=== PATIENT | female | born 1955 | race Caucasian/White ===

== ENCOUNTER → 2016-08-30 | Outpatient (CLI) | payer BC ==
[~2016-08-30] MED LIST: ASPE10LO EX; ASPI1TAB24 PO; ASPI81TA83 PO; CORITAB5 PO; GABA300C3 PO; GABA600T PO; HYDR25TA6 PO; HYDR25TAB PO; LISI10TA4 PO; MELO15TA4 PO; MULT1TAB9 PO; NEUR300C PO; POLYPOW9 PO; PRAV10TA PO; PRAV10TA2 PO; TRAM50TA2 PO; VITA200016 PO; excedrin OR; tylenol arthritis PO
[2016-08-30 11:31] LABS: MEAN CORPUSCULAR HEMOGLOBIN 29.7 pg (27.0-33.0); MEAN CORPUSCULAR HGB CONC 33.1 g/dl (32.0-36.5); MEAN CORPUSCULAR VOLUME 89.9 fl (80.0-96.0); RED CELL DISTRIBUTION WIDTH 13.8 % (11.5-14.5); WHITE BLOOD COUNT 5.4 K/mm3 (4.0-10.0)
[2016-08-30 11:41] LABS: INR 1.02
[2016-08-30 12:02] LABS: ALBUMIN 3.9 GM/DL (3.2-5.2); ALBUMIN/GLOBULIN RATIO 1.11 (1.00-1.93); ALKALINE PHOSPHATASE 87 U/L (45-117); ALT/SGPT 19 U/L (12-78); ANION GAP 11 MEQ/L (8-16); AST/SGOT 17 U/L (15-37); BILIRUBIN,TOTAL 0.9 MG/DL (0.2-1.0); BLOOD UREA NITROGEN 21 MG/DL (7-18); CARBON DIOXIDE LEVEL 30 MEQ/L (21-32); CHLORIDE LEVEL 99 MEQ/L (98-107); CREATININE FOR GFR 0.65 MG/DL (0.55-1.02); GLOMERULAR FILTRATION RATE > 60.0 (>45); GLUCOSE, FASTING 89 MG/DL (80-110); POTASSIUM SERUM 3.7 MEQ/L (3.5-5.1); SODIUM LEVEL 140 MEQ/L (136-145); TOTAL PROTEIN 7.4 GM/DL (6.4-8.2)
--- NOTE | 2016-08-30 22:03 | REP ---
Clinical: Chest pain with history of diabetes . Comparison: 01/27/2011 . Technique: PA and lateral. Findings: The mediastinum and cardiac silhouette are normal. The lung sandra are clear and without acute consolidation, effusion, or pneumothorax. The skeletal structures are intact and normal. Impression: 1. No acute cardiopulmonary process. Signed by John Faulkner MD 08/30/2016 09:55 P
--- NOTE | 2016-08-31 17:17 | ECGEPIP ---
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
== END ==
LOC: M ADMPAT 09:18
PROVIDERS: ATTEND Orthopaedic Surgery
DX: Z01.818 Encounter for other preprocedural examination (principal); M16.12 Unilateral primary osteoarthritis, left hip; Z79.899 Other long term (current) drug therapy

== ENCOUNTER 2016-09-12 09:07 | Inpatient (IN) | payer BC ==
[2016-08-30 10:26] VITALS: BP 171/84
--- NOTE | 2016-09-06 13:59 | HPE ---
DATE OF ADMISSION: 09/12/2016 CHIEF COMPLAINT: Left hip pain. HISTORY OF PRESENT ILLNESS: This is a pleasant 60-year-old female with progressively worsening left hip pain and stiffness. She has failed to improve with conservative treatment. She has elected for surgery for her continued symptoms. She has pain with weight bearing activities and her activities of daily living. X-rays of her hip are notable for advanced osteoarthritis of the left hip joint. She has consented for a left total hip arthroplasty by Dr. Herman Lancaster. Medical optimization will be performed by Dr Tom tomorrow. ALLERGIES: No known drug allergies. CURRENT MEDICATIONS: - tramadol 50 mg one three times a day as needed - gabapentin 300 mg two capsules in the morning, one in the afternoon and two capsules in the evening - hydrochlorothiazide 25 mg once a day - lisinopril 10 mg once a day - pravastatin 10 mg once at bedtime - low dose aspirin once a day - PEG as needed - woman's one a day multivitamin - vitamin D3 2000 units - Aspercreme ointment as needed - Coricidin HPB as needed PAST MEDICAL HISTORY: High blood pressure. History of stroke. Sciatica. High cholesterol. PAST SURGICAL HISTORY: Appendectomy. Cholecystectomy. Excision of basal cell carcinoma of the skin. 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 She does not smoke or drink. FAMILY HISTORY: Noncontributory. REVIEW OF SYSTEMS: The patient denies chest pain, heart palpitations, cough, wheezing, difficulty breathing and shortness of breath. She denies abdominal pain, nausea, vomiting, diarrhea or constipation. She denies recent upper respiratory infection or urinary tract infection symptoms. She does complain of persistent pain in her left hip and pain with weight bearing activities in her left hip. PHYSICAL EXAMINATION: General: She is a well nourished, well developed, in no acute distress adult female. She ambulates with a moderate limp favoring her left lower extremity. She uses a single leg cane for ambulation. Vital signs: She is 5 feet 1 inch, weight 191 pounds, temperature 97.6, blood pressure 122/78, pulse 70, respirations 14. Her BMI 36.1. Neck: Supple without adenopathy or jugular venous distention. There were no carotid bruits appreciated upon auscultation. Lungs: Clear to auscultation without rales or wheeze throughout. Heart: Regular rate and rhythm. Abdomen: Bowel sounds present. Extremities: Examination of the hip revealed intact skin. She has decreased range of motion with internal and external rotation secondary to pain and stillness. The limb is neurovascularly intact. LABORATORY DATA: EKG showed sinus rhythm at 63 beats per minute. Chest x-ray showed no acute cardiopulmonary disease processes. UA showed 5 red blood cells, 1+ bacteria, otherwise within normal limits with specific gravity of 1.016. Prothrombin time 13.5, INR 1.02, CBC showed a red count of 3.97, hemoglobin 11.8, hematocrit 35.7. Otherwise within normal limits. Sed rate was 52, glucose 89, BUN 21, creatinine 0.65. Sodium 140, potassium 3.7. Urine culture showed no growth. Nasal and sinus cultures showed normal dayne. IMPRESSION: Symptomatic osteoarthritis of the left hip joint. PLAN: Consented for a left total hip arthroplasty by Dr. Herman Lancaster.
[~2016-09-12] VITALS: Ht 157.5 cm; Wt 87.0 kg
[2016-09-12] MEDS ORDERED: LR 1,000 ML IV SCH ×2 (09:30→14:30)
[2016-09-12] MEDS ORDERED: ceFAZolin 1GM INJ (J0690) As Ordered ONE (09:42)
[2016-09-12] MEDS ORDERED: BUPIVACAINE HCL 0.5% 10 ML VIAL As Ordered ONE ×2 (09:42→09:47)
[2016-09-12] MEDS ORDERED: BUPIVACAINE HCL 0.25% 30 ML VIAL As Ordered ONE (09:43)
[2016-09-12] MEDS ORDERED: EPINEPHrine INJ 1 MG/ML 1ML VIAL/AMP As Ordered ONE (09:44)
[2016-09-12] MEDS ORDERED: TRANEXAMIC ACID 100 MG/ML 10ML VIAL As Ordered ONE (09:44)
[2016-09-12] MEDS ORDERED: MIDAZOLAM INJ 2 MG/2 ML VIAL (J2250) As Ordered ONE (11:42)
[2016-09-12] MEDS ORDERED: fentaNYL 100 MCG/2 ML INJECTION (J3010) As Ordered ONE ×2 (11:42→11:59)
[2016-09-12] MEDS ORDERED: BUPIVACAINE HCL 0.25% 10 ML VIAL As Ordered ONE (12:02)
[2016-09-12] MEDS ORDERED: fentaNYL 100 MCG/2 ML INJECTION (J3010) XX ONE (12:34)
[2016-09-12] MEDS ORDERED: EPINEPHrine INJ 1 MG/ML 1ML VIAL/AMP XX ONE (12:34)
[2016-09-12] MEDS ORDERED: BUPIVACAINE HCL 0.25% 30 ML VIAL XX ONE (12:34)
[2016-09-12] MEDS ORDERED: TRANEXAMIC ACID 100 MG/ML 10ML VIAL XX ONE (12:34)
[2016-09-12] MEDS ORDERED: ceFAZolin 1GM INJ (J0690) IR ONE (12:34)
[2016-09-12] MEDS ORDERED: MORPHINE PCA 1MG/ML 100ML CADD As Ordered ONE (13:34)
--- NOTE | 2016-09-12 14:12 | RO ---
DATE OF PROCEDURE: 09/12/2016 PREPROCEDURE DIAGNOSIS: Left hip osteoarthritis. POSTPROCEDURE DIAGNOSIS: Left total hip osteoarthritis. OPERATION PERFORMED: Left total hip replacement. SURGEON: Herman Lancaster MD LAST MODEL MAKER: SHIRIN Power HISTORY: A 60-year-old female with severe erosive arthritis with arthrokatadysis. The patient presents for elective total hip. FINDINGS AT SURGERY: Severely deep acetabulum that had to be bone grafted in order to position the cup correctly. Huge osteophytes removed. Mr. Latham assisted by manipulating the leg and retracting vital structures in order to expedite the surgery. At surgery, we put in a 54 cup, 36 polyethylene liner and a #4 [place], a 36 x 1.5 head neck length. Blood loss was around 150 to 200 mL. No blood replaced intraoperatively. We had good range of motion. No impingement after we removed the large osteophytes from around the cup. DESCRIPTION OF PROCEDURE: After spinal anesthetic, a Zamora catheter placed, IV antibiotics were administered. She was rolled left side up in the Miguel and padded appropriately. Then prepped and draped. Lateral incision made. Bleeding points controlled with electrocautery. The IT band divided in line with the fibers. The abductors reflected anteriorly. Labrum was incised and the hip dislocated. The intermedullary canal reamed to a 4. The neck was cut, the head discarded and the acetabulum was exposed. Huge osteophytes needed to be trimmed just to get into the acetabulum. Then, sequentially reaming from 43 on up to 53, we are able to get a good bony rim. The acetabulum was probably another 8-10 mm deeper than what I thought the cup would go so that area was scuffed up with a tiny reamer, 40, and then bone graft was placed in the bottom and we used a reverse reamer to pack it in. The cup was then seated in appropriate anteversion. The apex hole eliminator was installed and the polyethylene was installed. We had good fit. The number 4 rest stem was utilized. The trial reduction showed some minor impingement superiorly so we went ahead and trimmed a little bit more of the osteophyte and that took care of that, it was stable in flexion and internal rotation and there was no shuck. Trial components were removed. The permanent components installed and the hip reduced. The area thoroughly irrigated with orthopedic solution. TXA was instilled into the wound for postoperative control of bleeding and the PainBuster was installed for postop analgesia. The capsule closed with heavy PDS suture. The abductors repaired back to the trochanter with several sutures going through bone. The IT band repaired with the same suture. The wound was then closed. Subcutaneous with several layers of #2-0 PDS due to the extreme depth of the fatty layer. [place] for skin. Dry dressing applied. The PainBuster was primed with 10 mL. The patient rolled flat and transported to the recovery room breathing spontaneously, having tolerated procedure well.
[2016-09-12] MEDS ORDERED: NALOXONE INJ 0.4 MG/1 ML VIAL (J2310) IV PRN (14:15)
[2016-09-12] MEDS ORDERED: MORPHINE PCA 1MG/ML 100ML CADD IV PRN (14:15)
[2016-09-12] MEDS ORDERED: diphenhydrAMINE INJ 50MG/ML VIAL (J1200) IV PRN (14:15)
[2016-09-12] MEDS ORDERED: ACETAMINOPHEN TAB 650MG DOSE (2X325MG) PO PRN (14:15)
[2016-09-12] MEDS: D5W/0.45% SODIUM CHLORIDE 1,000 ML IV SCH (14:15)
[2016-09-12] MEDS ORDERED: EPIDURAL/PCA KEYS XX PRN (14:15)
[2016-09-12] MEDS ORDERED: PATIENT IS CURRENTLY ON AN ON-Q PAIN BUSTER PAIN RELIEF SYSTEM XX SCH (14:15)
[2016-09-12] MEDS ORDERED: FLEET ENEMA PR PRN (14:15)
[2016-09-12] MEDS ORDERED: NALBUPHINE HCL 10 MG/ML AMP (J2300) IV PRN (14:15)
[2016-09-12] MEDS ORDERED: ONDANSETRON 4MG/2ML VIAL (J2405) IV PRN ×2 (14:15→14:30)
[2016-09-12] MEDS ORDERED: METOCLOPRAMIDE INJ 10MG/2ML VIAL (J2765) IV PRN (14:30)
[2016-09-12] MEDS ORDERED: PERCOCET 5MG/325MG TAB PO PRN (14:30)
[2016-09-12] MEDS ORDERED: fentaNYL 100 MCG/2 ML INJECTION (J3010) IV PRN (14:30)
[2016-09-12] MEDS ORDERED: MORPHINE 2 MG/ML 1ML SYRINGE IV PRN (14:30)
[2016-09-12 16:00] VITALS: BP 159/77
[2016-09-12 16:30] VITALS: BP 160/72
[2016-09-12] MEDS ORDERED: WARFARIN SOD 5 MG TAB PO SCH (17:00)
[2016-09-12] MEDS ORDERED: GABA-283 PO (17:22)
[2016-09-12 17:30] VITALS: BP 136/65
[2016-09-12 18:30] VITALS: BP 136/60
--- NOTE | 2016-09-12 18:30 | CR ---
DATE OF CONSULTATION: 09/12/2016 REASON FOR CONSULTATION: Medical management. CONSULTING PHYSICIAN: Dr. Herman Lancaster PRIMARY CARE PROVIDER: Latonya Euceda NP HISTORY OF PRESENT ILLNESS: The patient is a 60-year-old female with past medical history significant for hypertension, hyperlipidemia, sciatica, history of stroke, worsening hip pain, presented to the hospital for an elective left hip surgery. The patient had failed outpatient conservative treatment for her left hip pain and stiffness. Has gotten progressively worse. She has elected for surgery. She was cleared by primary care provider, Dr. Guadarrama. The patient tolerated the procedure well. We were called for medical management. REVIEW OF SYSTEMS: A 12-point review of systems was obtained, all which was negative, except patient was complaining of some postoperative left hip pain. PAST MEDICAL HISTORY: Significant for: 1. Hypertension. 2. Hyperlipidemia. 3. Sciatica. 4. History of stroke with no residual deficits. 5. Neuropathy. ALLERGIES: No known drug allergies. HOME MEDICATIONS: Include: - tramadol 50 mg three times a day - gabapentin 600 mg in the afternoon and at night - hydrochlorothiazide 25 mg by mouth daily - lisinopril 10 mg by mouth daily - pravastatin 10 mg at bedtime - low-dose aspirin daily - multivitamin one tablet daily - vitamin D 2000 units daily PAST SURGICAL HISTORY: 1. Appendectomy. 2. Cholecystectomy. 3. Basal cell carcinoma of the skin. SOCIAL HISTORY: Patient lives with her . No alcohol or tobacco use. FAMILY HISTORY: Noncontributory. PHYSICAL EXAMINATION: VITAL SIGNS: Temperature 97.1, pulse 67, respiratory rate 16, blood pressure 117/69, pulse oximetry 100% on 2 liters nasal cannula. LABORATORY DATA OUTPATIENT: WBC 5.6, hemoglobin 11.8, hematocrit 35.7, platelet count 310. Sodium 140, potassium 3.7, chloride 99, BUN 21, creatinine 0.65, magnesium 1.8. ASSESSMENT AND PLAN: 1. Left hip osteoarthritis, status post left total hip replacement. Postoperative day #0. Pain and anticoagulation management per surgery. The patient has Zamora catheter in the right now. 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 She received one dose of 5 mg Coumadin. 2. History of hypertension. We will hold the patient's hypertensive medications at this time. Blood pressure appears to be controlled with the last blood pressure of 117/69. We will recheck laboratory data in the morning and continue the patient's home medications if need be. 3. History of hyperlipidemia. We will resume the patient's statin. 4. History of cerebrovascular accident (CVA) with no residual deficits. 5. History of neuropathy. Will continue the patient's home medication in the morning. 6. Deep vein thrombosis (DVT) prophylaxis. The patient was started on Coumadin per surgery.
[2016-09-12] MEDS ORDERED: PRAVASTATIN 10 MG TAB PO SCH (21:00)
[2016-09-12 22:00] VITALS: BP 144/67
[2016-09-13] MEDS: D5W/0.45% SODIUM CHLORIDE 1,000 ML IV SCH (00:15)
[2016-09-13 02:00] VITALS: BP 140/60
[2016-09-13 06:00] VITALS: BP 138/70
[2016-09-13] MEDS ORDERED: ONDANSETRON 4 MG TAB (S0181) PO PRN (06:45)
[2016-09-13] MEDS ORDERED: PERCOCET 5MG/325MG TAB PO PRN (06:45)
[2016-09-13 06:50] LABS: MEAN CORPUSCULAR HEMOGLOBIN 29.7 pg (27.0-33.0); MEAN CORPUSCULAR HGB CONC 32.9 g/dl (32.0-36.5); MEAN CORPUSCULAR VOLUME 90.3 fl (80.0-96.0); RED CELL DISTRIBUTION WIDTH 13.8 % (11.5-14.5); WHITE BLOOD COUNT 5.3 K/mm3 (4.0-10.0)
[2016-09-13 06:57] LABS: INR 1.08
[2016-09-13 07:23] LABS: ALBUMIN 2.9 GM/DL (3.2-5.2); ALBUMIN/GLOBULIN RATIO 1.07 (1.00-1.93); ALKALINE PHOSPHATASE 96 U/L (45-117); ALT/SGPT 126 U/L (12-78); ANION GAP 9 MEQ/L (8-16); AST/SGOT 216 U/L (15-37); BILIRUBIN,TOTAL 1.6 MG/DL (0.2-1.0); BLOOD UREA NITROGEN 12 MG/DL (7-18); CALCIUM LEVEL 8.1 MG/DL (8.8-10.2); CARBON DIOXIDE LEVEL 28 MEQ/L (21-32); CHLORIDE LEVEL 101 MEQ/L (98-107); CREATININE FOR GFR 0.66 MG/DL (0.55-1.02); GLOMERULAR FILTRATION RATE > 60.0 (>45); GLUCOSE, FASTING 125 MG/DL (80-110); MAGNESIUM LEVEL 1.6 MG/DL (1.8-2.4); POTASSIUM SERUM 3.7 MEQ/L (3.5-5.1); SODIUM LEVEL 138 MEQ/L (136-145); TOTAL PROTEIN 5.6 GM/DL (6.4-8.2)
--- NOTE | 2016-09-13 08:05 | IPN ---
DATE: 09/13/2016 60-year-old female seen at bedside. No overnight issues. She feels her pain is adequately controlled. She denies chest pain, shortness breath, productive sputum, cough or hemoptysis. OBJECTIVE: Temperature is 97.1, pulse is 83, respiratory rate is 16 and nonlabored, blood pressure 138/70, SpO2 is 98% on 2 liters. GENERAL: The patient appears to be in no acute distress. She is alert and oriented, pleasant to talk to. HEENT: Unremarkable. LUNGS: Clear. HEART: Regular rate and rhythm. ABDOMEN: Slightly distended, but positive bowel sounds. No masses. No rebound. EXTREMITIES: No edema. No calf tenderness. LABORATORY DATA: White count is 5.3, hemoglobin 10.3, platelets 256,000, sodium 138, potassium 3.7, chloride 101, bicarb 28, anion gap 9, BUN 12, creatinine 0.66, glucose 125, magnesium 1.6, AST 216, ALT 126, alkaline phosphatase 96, albumin 2.9, INR is 1.08. ASSESSMENT/PLAN: 1. Left hip osteoarthritis status post left total hip arthroplasty, postop day 1. Pain and anticoagulation management per orthopedics. She does appear to be somewhat constipated. I did speak to orthopedics. They will be managing her bowel regimen as well. 2. Hypertension. Continue with blood pressure medications with hold parameters as outlined. 3. Elevated transaminitis with no definitive cause. Will continue to follow to see how she trends with this. She does not have any significant abdominal pain at this time and no pertinent history of alcohol or gallbladder disease. 4. History of cerebrovascular accident with no residual deficits. 5. History of neuropathy with left-sided sciatica. She is going to continue with her home medications. 6. Deep vein thrombosis (DVT) prophylaxis. Patient is on Coumadin and will begin passive range motion and hopefully physical therapy within the next 24-48 hours.
[2016-09-13] MEDS: MIRALAX *UNIT DOSE* 17GM PACKET PO SCH (08:26)
[2016-09-13] MEDS: MOM 30ML SUSPENSION UDC PO SCH (08:26)
[2016-09-13] MEDS: SENOKOT S TAB PO SCH ×2 (08:26→20:04)
[2016-09-13] MEDS: PERCOCET 5MG/325MG TAB PO PRN ×3 (08:26→21:16)
[2016-09-13] MEDS: MAGNESIUM OXIDE 400 MG TAB (MAG-OX) PO SCH (09:00)
[2016-09-13 10:00] VITALS: BP 120/76
--- NOTE | 2016-09-13 11:00 | REP ---
LEFT HIP SERIES: Three views. HISTORY: Postop position check. COMPARISON: Left hip radiographs are from July 13, 2015. FINDINGS: A left hip arthroplasty has been installed and is seen in good position. There is periarticular soft tissue swelling and soft tissue emphysema. Lateral skin rayna are seen. Signed by Jaison Reis MD 09/13/2016 08:10 P
[2016-09-13 14:00] VITALS: BP 116/66
[2016-09-13] MEDS ORDERED: WARFARIN SOD 5 MG TAB PO ONE (17:00)
[2016-09-14] MEDS: PERCOCET 5MG/325MG TAB PO PRN ×4 (01:27→22:35)
[2016-09-14 06:00] VITALS: BP 116/64
[2016-09-14 06:50] LABS: INR 1.28
[2016-09-14 07:16] LABS: ALBUMIN 2.8 GM/DL (3.2-5.2); ALBUMIN/GLOBULIN RATIO 0.82 (1.00-1.93); ALKALINE PHOSPHATASE 82 U/L (45-117); ALT/SGPT 72 U/L (12-78); ANION GAP 8 MEQ/L (8-16); AST/SGOT 54 U/L (15-37); BILIRUBIN,TOTAL 1.9 MG/DL (0.2-1.0); BLOOD UREA NITROGEN 12 MG/DL (7-18); CALCIUM LEVEL 8.4 MG/DL (8.8-10.2); CARBON DIOXIDE LEVEL 31 MEQ/L (21-32); CHLORIDE LEVEL 100 MEQ/L (98-107); CREATININE FOR GFR 0.59 MG/DL (0.55-1.02); GLOMERULAR FILTRATION RATE > 60.0 (>45); GLUCOSE, FASTING 107 MG/DL (80-110); MAGNESIUM LEVEL 2.1 MG/DL (1.8-2.4); POTASSIUM SERUM 3.9 MEQ/L (3.5-5.1); SODIUM LEVEL 139 MEQ/L (136-145); TOTAL PROTEIN 6.2 GM/DL (6.4-8.2)
[2016-09-14] MEDS ORDERED: MAGNESIUM CITRATE 300 ML BTL PO ONE (07:45)
[2016-09-14] MEDS: PANTOPRAZOLE 40MG TAB (PROTONIX) PO SCH (09:10)
[2016-09-14] MEDS: MOM 30ML SUSPENSION UDC PO SCH (09:11)
[2016-09-14] MEDS: MAGNESIUM OXIDE 400 MG TAB (MAG-OX) PO SCH (09:11)
[2016-09-14] MEDS: MIRALAX *UNIT DOSE* 17GM PACKET PO SCH (09:11)
[2016-09-14] MEDS: SENOKOT S TAB PO SCH ×2 (09:12→20:01)
--- NOTE | 2016-09-14 11:59 | IPN ---
DATE: 09/14/2016 60-year-old female seen at bedside. No overnight issues. No chest pain, nausea or vomiting. She is tolerating breakfast this morning. OBJECTIVE: Temperature is 97.7, pulse 74, respiratory rate 18, blood pressure (BP) 116/64, SpO2 is 97% on room air. General: The patient appears to be in no acute distress, is alert, oriented. HEENT: Head is atraumatic, normocephalic. Eyes: Pupils equal, reactive to light and accommodation (ABDI). Throat clear. Lungs: Clear. Heart: Regular rate and rhythm. Abdomen: Soft. Extremities. No edema. Repeat chemistries: Sodium is 139, potassium 3.9, chloride 100, bicarbonate 31, anion gap 8, BUN 12, creatinine 0.59, glucose 107, magnesium 2.1, total bilirubin 1.9, AST is 54, ALT 72, alkaline phosphatase 82, albumin is 2.8. INR is 1.28. ASSESSMENT AND PLAN: 1. Left hip osteoarthritis status post left total hip arthroplasty day #2. Orthopedics is following along with this patient's pain management, anticoagulation. Physical therapy is managed by orthopedics as well as bowel regimen. 2. Hypertension, stable. Continue current medications with hold parameters. 3. Elevated transaminitis. No definitive cause. However, I did hold her statin yesterday and she does appear to be trending downward. Will hold the statin and she can followup outpatient with her primary care provider to determine when to resume. 4. History of cerebrovascular accident with no residual deficits. 5. History of neuropathy with left-sided sciatica. Doing well on her current medications and participating with physical therapy. 6. Deep venous thrombosis (DVT) prophylaxis. Currently on Coumadin. Managed by physical therapy. DISPOSITION: Anticipate discharge in the next few days, when is felt to be appropriate by orthopedics. [facility]
[2016-09-14] MEDS ORDERED: MAGNESIUM CITRATE 300 ML BTL PO PRN (12:00)
[2016-09-14 14:00] VITALS: BP 140/72
[2016-09-14] MEDS ORDERED: WARFARIN SOD 7.5 MG TAB PO ONE (17:00)
[2016-09-14] MEDS ORDERED: WARFARIN SOD 3 MG TAB PO ONE (17:00)
[2016-09-14 22:00] VITALS: BP 133/69
[2016-09-15 06:00] VITALS: BP 125/58
[2016-09-15 07:04] LABS: INR 1.28
[2016-09-15 07:11] LABS: ALBUMIN 2.9 GM/DL (3.2-5.2); ALBUMIN/GLOBULIN RATIO 0.73 (1.00-1.93); ALKALINE PHOSPHATASE 96 U/L (45-117); ALT/SGPT 50 U/L (12-78); ANION GAP 7 MEQ/L (8-16); AST/SGOT 24 U/L (15-37); BILIRUBIN,TOTAL 1.1 MG/DL (0.2-1.0); BLOOD UREA NITROGEN 15 MG/DL (7-18); CALCIUM LEVEL 8.6 MG/DL (8.8-10.2); CARBON DIOXIDE LEVEL 31 MEQ/L (21-32); CHLORIDE LEVEL 102 MEQ/L (98-107); CREATININE FOR GFR 0.64 MG/DL (0.55-1.02); GLOMERULAR FILTRATION RATE > 60.0 (>45); GLUCOSE, FASTING 133 MG/DL (80-110); MAGNESIUM LEVEL 2.3 MG/DL (1.8-2.4); POTASSIUM SERUM 3.3 MEQ/L (3.5-5.1); SODIUM LEVEL 140 MEQ/L (136-145); TOTAL PROTEIN 6.9 GM/DL (6.4-8.2)
[2016-09-15] MEDS ORDERED: PERC5TAB6 PO (07:43)
[2016-09-15] MEDS ORDERED: COUM2.5T11 PO (07:43)
[2016-09-15] MEDS: MOM 30ML SUSPENSION UDC PO SCH (08:13)
[2016-09-15] MEDS: MIRALAX *UNIT DOSE* 17GM PACKET PO SCH (08:13)
[2016-09-15] MEDS: SENOKOT S TAB PO SCH (08:13)
[2016-09-15] MEDS: PANTOPRAZOLE 40MG TAB (PROTONIX) PO SCH (08:13)
[2016-09-15] MEDS: MAGNESIUM OXIDE 400 MG TAB (MAG-OX) PO SCH (08:13)
[2016-09-15] MEDS: PERCOCET 5MG/325MG TAB PO PRN (08:20)
--- NOTE | 2016-09-18 17:23 | DSES ---
DATE OF ADMISSION: 09/12/2016 DATE OF DISCHARGE: 09/15/2016 ADMITTING DIAGNOSIS: Severe erosive osteoarthritis of the left hip. OTHER DIAGNOSES: 1. Hyperlipidemia. 2. Hypertension. 3. History of stroke. 4. Sciatica. DISCHARGE DIAGNOSIS: Status post left total hip arthroplasty. HISTORY OF PRESENT ILLNESS: Patient is a pleasant female with continued symptomatic left hip pain and stiffness. She has consented for a left total hip arthroplasty with Dr. Lancaster. She was admitted on the day of surgery for this elective procedure. OPERATION PERFORMED: Left total hip arthroplasty. HOSPITAL COURSE: The patient underwent a left total hip arthroplasty under spinal anesthesia. Surgery was uneventful. Patient's hospital course was without complication. She was up with physical therapy per their protocol. She was weightbearing as tolerated with the left lower extremity. Oral pain medication as needed for pain control. Patient may resume preoperative medications and diet. Patient will use Coumadin and thromboembolic deterrent stockings for 30 days post surgery for deep venous thrombosis prophylaxis. She will followup in our office in approximately 12-14 days for a wound check, staple removal. The patient is encouraged to contact our office sooner with any increased pain, drainage, bleeding, redness, numbness and tingling in her left lower extremity, or fever greater than 101 degrees. Please see medical record for additional details. Edited: leanne 09/18/2016 1601
== END 2016-09-15 12:50 | disposition home or self-care (01) | DRG 301 ==
LOC: M OR 09:07 → M MS5PR 15:45
PROVIDERS: ADMIT Orthopaedic Surgery; ATTEND Orthopaedic Surgery
PROC: 0SRB0JA Replacement of Left Hip Joint with Synthetic Substitute, Uncemented, Open Approach (ICD-10-PCS; principal; 2016-09-12 10:50)
DX: M16.12 Unilateral primary osteoarthritis, left hip (principal); I10 Essential (primary) hypertension; Z79.899 Other long term (current) drug therapy; E78.5 Hyperlipidemia, unspecified; Z86.73 Personal history of transient ischemic attack (TIA), and cerebral infarction without residual deficits; Z79.82 Long term (current) use of aspirin; G60.9 Hereditary and idiopathic neuropathy, unspecified

== ENCOUNTER → 2016-09-21 | Outpatient (REF) | payer BC ==
[~2016-09-21] MED LIST changes: +COUM2.5T11 PO; +GABA-283 PO; +PERC5TAB6 PO
[2016-09-21 11:30] LABS: INR 1.53
== END ==
LOC: M LAB REF 11:07
PROVIDERS: ATTEND Nurse Practitioner Family
DX: Z79.01 Long term (current) use of anticoagulants (principal)

== ENCOUNTER → 2016-09-25 | Outpatient (REF) | payer BC ==
[2016-09-25 12:43] LABS: INR 1.46
== END ==
LOC: M LAB REF 12:00
PROVIDERS: ATTEND Nurse Practitioner Family
DX: Z79.01 Long term (current) use of anticoagulants (principal)

== ENCOUNTER → 2016-09-28 | Outpatient (REF) | payer BC ==
[2016-09-28 12:45] LABS: INR 1.56
== END ==
LOC: M LAB REF 12:12
PROVIDERS: ATTEND Nurse Practitioner Family
DX: Z79.01 Long term (current) use of anticoagulants (principal)

== ENCOUNTER → 2016-10-02 | Outpatient (REF) | payer BC ==
[2016-10-02 13:12] LABS: INR 2.25
== END ==
LOC: M LAB REF 12:13
PROVIDERS: ATTEND Nurse Practitioner Family
DX: Z79.01 Long term (current) use of anticoagulants (principal)

== ENCOUNTER → 2016-10-05 | Outpatient (REF) | payer BC ==
[2016-10-05 12:28] LABS: INR 1.61
== END ==
LOC: M LAB REF 11:45
PROVIDERS: ATTEND Nurse Practitioner Family
DX: Z79.01 Long term (current) use of anticoagulants (principal)

== ENCOUNTER → 2016-10-06 | Outpatient (REF) | payer BC ==
[2016-10-06 17:46] LABS: BASO % 0.5 % (0.0-1.0); EOS # 0.1 K/mm3 (0.0-0.50); EOS % 2.4 % (0.0-3.0); LARGE UNSTAINED CELL # 0.1 K/mm3 (0.0-0.4); LYMPH # 1.3 K/mm3 (1.5-4.5); LYMPH % 24.8 % (24.0-44.0); MEAN CORPUSCULAR HEMOGLOBIN 28.8 pg (27.0-33.0); MEAN CORPUSCULAR HGB CONC 31.4 g/dl (32.0-36.5); MEAN CORPUSCULAR VOLUME 91.9 fl (80.0-96.0); MONO # 0.3 K/mm3 (0.0-0.8); NEUTROPHILS # 3.3 K/mm3 (1.8-7.7); NEUTROPHILS % 64.3 % (36.0-66.0); PLATELET COUNT, AUTOMATED 386 k/mm3 (150-450); RED CELL DISTRIBUTION WIDTH 13.3 % (11.5-14.5); WHITE BLOOD COUNT 5.2 K/mm3 (4.0-10.0)
[2016-10-06 19:48] LABS: ERYTHROCYTE SEDIMENTATION RATE 70 mm/hr (0-30)
== END ==
LOC: M LABDRAW1 17:01
PROVIDERS: ATTEND Physician Assistant Surgical
DX: Z47.1 Aftercare following joint replacement surgery (principal)

== ENCOUNTER → 2016-10-24 | Outpatient (REF) | payer BC ==
[2016-10-24 12:23] LABS: ALBUMIN 3.5 GM/DL (3.2-5.2); ALBUMIN/GLOBULIN RATIO 1.06 (1.00-1.93); ALKALINE PHOSPHATASE 86 U/L (45-117); ALT/SGPT 17 U/L (12-78); ANION GAP 10 MEQ/L (8-16); AST/SGOT 9 U/L (15-37); BILIRUBIN,TOTAL 0.8 MG/DL (0.2-1.0); BLOOD UREA NITROGEN 18 MG/DL (7-18); CALCIUM LEVEL 8.9 MG/DL (8.8-10.2); CARBON DIOXIDE LEVEL 29 MEQ/L (21-32); CHLORIDE LEVEL 105 MEQ/L (98-107); CHOLESTEROL LEVEL 204 MG/DL (<200); CREATININE FOR GFR 0.65 MG/DL (0.55-1.02); GLOMERULAR FILTRATION RATE > 60.0 (>45); GLUCOSE, FASTING 95 MG/DL (80-110); POTASSIUM SERUM 4.1 MEQ/L (3.5-5.1); SODIUM LEVEL 144 MEQ/L (136-145); TOTAL PROTEIN 6.8 GM/DL (6.4-8.2); TRIGLYCERIDES LEVEL 136 MG/DL (<150)
== END ==
LOC: M SFHCLERA 08:42
PROVIDERS: ATTEND Physician Assistant
DX: I10 Essential (primary) hypertension (principal); R73.01 Impaired fasting glucose; E78.2 Mixed hyperlipidemia

== ENCOUNTER → 2017-02-12 | Outpatient (REF) | payer BC ==
[~2017-02-12] MED LIST changes: +GABA-282 PO; -GABA300C3 PO
[2017-02-12 12:25] LABS: ALBUMIN 4.1 GM/DL (3.2-5.2); ALBUMIN/GLOBULIN RATIO 1.32 (1.00-1.93); ALKALINE PHOSPHATASE 93 U/L (45-117); ALT/SGPT 20 U/L (12-78); ANION GAP 9 MEQ/L (8-16); AST/SGOT 17 U/L (15-37); BILIRUBIN,TOTAL 1.7 MG/DL (0.2-1.0); BLOOD UREA NITROGEN 20 MG/DL (7-18); CALCIUM LEVEL 9.3 MG/DL (8.8-10.2); CARBON DIOXIDE LEVEL 29 MEQ/L (21-32); CHLORIDE LEVEL 101 MEQ/L (98-107); CHOLESTEROL LEVEL 121 MG/DL (<200); CREATININE FOR GFR 0.75 MG/DL (0.55-1.02); GLOMERULAR FILTRATION RATE > 60.0 (>45); GLUCOSE, FASTING 98 MG/DL (80-110); POTASSIUM SERUM 3.4 MEQ/L (3.5-5.1); SODIUM LEVEL 139 MEQ/L (136-145); TOTAL PROTEIN 7.2 GM/DL (6.4-8.2); TRIGLYCERIDES LEVEL 113 MG/DL (<150)
== END ==
LOC: M SFHCLERA 09:18
PROVIDERS: ATTEND Physician Assistant
DX: E78.2 Mixed hyperlipidemia (principal)

== ENCOUNTER → 2017-02-23 | Outpatient (CLI) | payer BC ==
[~2017-02-23] MED LIST changes: +ASPI-161 PO; -ASPI1TAB24 PO; +ATOR40TA75 PO; +BIOF4GEL2 EXT; -COUM2.5T11 PO; +COUM2.5T17 PO; +PERC5TAB12 PO; -PERC5TAB6 PO; +POLYPOW9 XX; -PRAV10TA PO; +PRAV10TA4 PO; +TYLE650T35 PO
--- NOTE | 2017-02-23 16:11 | REPMRS ---
Patient History The patient states she has not had a clinical breast exam in over a year. Patient is postmenopausal. No known family history of cancer. Digital Woman Screen Mammo: February 23, 2017 - Exam #: [id number] Bilateral CC and MLO view(s) were taken. Technologist: Stormy Piña, Technologist Prior study comparison: March 02, 2003, bilateral screening mammogram performed at [facility]. FINDINGS: There are scattered fibroglandular densities. There has been no change in the appearance of the mammogram from the prior studies. There is a mild amount of scattered fibroglandular density which is fairly symmetric. There is no interval development of dominant mass, architectural distortion, or clustered microcalcification suggestive of malignancy. ASSESSMENT: BI-RADS/ACR category 1 mammogram. Negative. Recommendation Routine screening mammogram in 1 year (for women over age 40). This mammogram was interpreted with the aid of an FDA-approved computer-aided dectection system. Electronically Signed By: Josh Reis MD 02/23/17 [id number]
== END ==
LOC: M WHC 12:41
PROVIDERS: ATTEND Physician Assistant
DX: Z12.31 Encounter for screening mammogram for malignant neoplasm of breast (principal); Z78.0 Asymptomatic menopausal state

== ENCOUNTER 2017-04-06 09:25 | Outpatient (CLI) | payer BC ==
[~2017-04-06] VITALS: Ht 157.5 cm; Wt 94.3 kg
[2017-04-06] MEDS ORDERED: NS 1,000 ML IV ONE (09:45)
[2017-04-06] MEDS ORDERED: PROPOFOL 200 MG/20 ML VIAL As Ordered ONE (11:02)
[2017-04-06] MEDS ORDERED: LIDOCAINE 2% INJ 100 MG/5 ML SDV (FOR ANES.) As Ordered ONE (11:02)
--- NOTE | 2017-04-06 11:21 | ROOR ---
Patient Name: Aracely Eagle Procedure Date: 04/06/2017 10:58 AM Date of : 1955 Age: 61 Room: [facility] Gender: Female Note Status: Finalized Procedure: Colonoscopy Indications: Screening for colorectal malignant neoplasm Providers: Miguel JOHNSON MD Referring MD: SHIRIN Gunter Requesting Provider: Medicines: Monitored Anesthesia Care Complications: No immediate complications. Procedure: Pre-Anesthesia Assessment: - The heart rate, respiratory rate, oxygen saturations, blood pressure, adequacy of pulmonary ventilation, and response to care were monitored throughout the procedure. The Colonoscope was introduced through the anus and advanced to the cecum, identified by appendiceal orifice and ileocecal valve. The colonoscopy was performed without difficulty. The patient tolerated the procedure well. The quality of the bowel preparation was good. Findings: The perianal and digital rectal examinations were normal. Mild diverticulosis and small internal hemorrhoids. The colon appeared normal on direct and retroflexion views. Impression: - Mild diverticulosis and small internal hemorrhoids. - The colon is otherwise normal on direct and retroflexion views. - No specimens collected. Recommendation: - Repeat colonoscopy in 10 years for screening purposes. Miguel Johnson MD Miguel JOHNSON MD 04/06/2017 11:21:06 AM This report has been signed electronically. Number of Addenda: 0 Note Initiated On: 04/06/2017 10:58 AM Estimated Blood Loss: Estimated blood loss: none.
[2017-04-06 11:45] VITALS: BP 161/76
== END 2017-04-06 11:58 | disposition home or self-care (01) ==
LOC: M OPP 09:25
PROVIDERS: ATTEND Internal Medicine Gastroenterology
DX: Z12.11 Encounter for screening for malignant neoplasm of colon (principal); K57.30 Diverticulosis of large intestine without perforation or abscess without bleeding; K64.8 Other hemorrhoids; I10 Essential (primary) hypertension; E78.5 Hyperlipidemia, unspecified; R12 Heartburn; M19.90 Unspecified osteoarthritis, unspecified site; M25.60 Stiffness of unspecified joint, not elsewhere classified; I69.354 Hemiplegia and hemiparesis following cerebral infarction affecting left non-dominant side; Z78.0 Asymptomatic menopausal state; Z79.82 Long term (current) use of aspirin; Z79.899 Other long term (current) drug therapy

== ENCOUNTER → 2017-05-14 | Outpatient (CLI) | payer BC ==
--- NOTE | 2017-05-14 12:33 | REP ---
RIGHT FOOT SERIES: Four views. HISTORY: Metatarsalgia. FINDINGS: Four views of the left foot demonstrate plantar calcaneal spurring. Vascular calcification is noted. There is a mild to moderate hallux valgus. There is diffuse osteopenia. No fracture, periosteal reaction or erosive change is seen. IMPRESSION: Vascular calcification and diffuse osteopenia. Heel spurring. No acute bony abnormality. Signed by Jaison Reis MD 05/14/2017 04:29 P
== END ==
LOC: M LRY 10:56
PROVIDERS: ATTEND Family Medicine
DX: M77.42 Metatarsalgia, left foot (principal)

== ENCOUNTER → 2017-08-10 | Outpatient (REF) | payer BC ==
[2017-08-10 11:42] LABS: MEAN CORPUSCULAR HEMOGLOBIN 29.8 pg (27.0-33.0); MEAN CORPUSCULAR HGB CONC 31.8 g/dl (32.0-36.5); MEAN CORPUSCULAR VOLUME 93.6 fl (80.0-96.0); PLATELET COUNT, AUTOMATED 334 10^3/uL (150-450); RED CELL DISTRIBUTION WIDTH 14.3 % (11.5-14.5); WHITE BLOOD COUNT 4.7 10^3/uL (4.0-10.0)
[2017-08-10 12:15] LABS: ALBUMIN/GLOBULIN RATIO 1.25 (1.00-1.93); ALKALINE PHOSPHATASE 84 U/L (45-117); ALT/SGPT 26 U/L (12-78); ANION GAP 9 MEQ/L (8-16); AST/SGOT 20 U/L (7-37); BILIRUBIN,TOTAL 1.4 MG/DL (0.2-1.0); BLOOD UREA NITROGEN 20 MG/DL (7-18); CARBON DIOXIDE LEVEL 27 MEQ/L (21-32); CHLORIDE LEVEL 106 MEQ/L (98-107); CHOLESTEROL LEVEL 115 MG/DL (<200); CREATININE FOR GFR 0.63 MG/DL (0.55-1.02); GLOMERULAR FILTRATION RATE > 60.0 (>45); GLUCOSE, FASTING 84 MG/DL (80-110); POTASSIUM SERUM 3.6 MEQ/L (3.5-5.1); SODIUM LEVEL 142 MEQ/L (136-145); TOTAL PROTEIN 7.2 GM/DL (6.4-8.2); TRIGLYCERIDES LEVEL 79 MG/DL (<150)
== END ==
LOC: M SFHCLERA 08:13
PROVIDERS: ATTEND Physician Assistant
DX: M77.42 Metatarsalgia, left foot (principal); E78.2 Mixed hyperlipidemia

== ENCOUNTER → 2018-04-22 | Outpatient (REF) | payer BC ==
[2018-04-22 12:13] LABS: ALBUMIN 3.9 GM/DL (3.2-5.2); ALBUMIN/GLOBULIN RATIO 1.22 (1.00-1.93); ALKALINE PHOSPHATASE 90 U/L (45-117); ALT/SGPT 29 U/L (12-78); ANION GAP 8 MEQ/L (8-16); AST/SGOT 20 U/L (7-37); BILIRUBIN,TOTAL 1.2 MG/DL (0.2-1.0); BLOOD UREA NITROGEN 30 MG/DL (7-18); CARBON DIOXIDE LEVEL 27 MEQ/L (21-32); CHLORIDE LEVEL 110 MEQ/L (98-107); CHOLESTEROL LEVEL 115 MG/DL (<200); CHOLESTEROL RISK RATIO 2.254 (<5); CREATININE FOR GFR 0.72 MG/DL (0.55-1.30); GLOMERULAR FILTRATION RATE > 60.0 (>45); GLUCOSE, FASTING 102 MG/DL (70-100); HDL CHOLESTEROL 51 MG/DL (>40); LDL CHOLESTEROL 46.2 MG/DL (<100); NON-HDL-C 64 MG/DL; POTASSIUM SERUM 4.4 MEQ/L (3.5-5.1); SODIUM LEVEL 145 MEQ/L (136-145); TOTAL PROTEIN 7.1 GM/DL (6.4-8.2); TRIGLYCERIDES LEVEL 89 MG/DL (<150)
[2018-04-22 14:38] LABS: ESTIMATED AVERAGE GLUCOSE 131 MG/DL (60-110); HEMOGLOBIN A1c 6.2 %
== END ==
LOC: M SFHCPLAZ 09:57
DX: E78.2 Mixed hyperlipidemia (principal); E66.09 Other obesity due to excess calories
CPT/HCPCS: 84443

== ENCOUNTER 2018-07-09 09:02 | Day surgery (SDC) | payer BC ==
[~2018-07-09 09:02] MED LIST changes: -ASPE10LO EX; -ASPI-161 PO; -ASPI81TA83 PO; -ATOR40TA75 PO; -BIOF4GEL2 EXT; -CORITAB5 PO; -COUM2.5T17 PO; -GABA-282 PO; -GABA-283 PO; -GABA600T PO; -HYDR25TA6 PO; -HYDR25TAB PO; +LIDOCAINE 1% MDV 20ML VIAL SQ; +LIDOCAINE 2% INJ 100 MG/5 ML SDV (FOR ANES.) As Ordered; -LISI10TA4 PO; -MELO15TA4 PO; +MIDAZOLAM INJ 2 MG/2 ML VIAL (J2250) As Ordered; -MULT1TAB9 PO; -NEUR300C PO; +ONDANSETRON 4MG/2ML VIAL (J2405) As Ordered; -PERC5TAB12 PO; -POLYPOW9 PO; -POLYPOW9 XX; -PRAV10TA2 PO; -PRAV10TA4 PO; +PROPOFOL 200 MG/20 ML VIAL As Ordered; +ROCURONIUM BROMIDE 50 MG/5 ML VIAL As Ordered; -TRAM50TA2 PO; -TYLE650T35 PO; -VITA200016 PO; +dexameTHASONE 4 MG/ML 1ML VIAL (J1100) As Ordered; -excedrin OR; +fentaNYL 250 MCG/5 ML INJECTION (J3010) As Ordered; -tylenol arthritis PO
[2018-07-09] MEDS: LR 1,000 ML IV (09:26)
[2018-07-09] MEDS: BUPIVACAINE HCL 0.25% 30 ML VIAL As Ordered ×2 (11:23→13:44)
[2018-07-09] MEDS ORDERED: ONDANSETRON 4MG/2ML VIAL (J2405) As Ordered (12:08)
[2018-07-09] MEDS ORDERED: SUGAMMADEX SODIUM 500 MG/5 ML VIAL (BRIDION) As Ordered (12:08)
[2018-07-09] MEDS ORDERED: PROPOFOL 200 MG/20 ML VIAL As Ordered (12:28)
[2018-07-09] MEDS ORDERED: LABETALOL HCL 100 MG/20 ML VIAL As Ordered (12:36)
[2018-07-09] MEDS ORDERED: KETOROLAC 60 MG/2 ML VIAL (J1885) As Ordered (12:51)
[2018-07-09] MEDS: BUPIVACAINE LIPOSOME/PF 1.3% 20ML VIAL (13.3MG/ML)(EXPAREL)(C9290 PER1MG) As Ordered (13:42)
[2018-07-09] MEDS ORDERED: ACETAMINOPHEN TAB 650MG DOSE (2X325MG) PO (14:30)
[2018-07-09] MEDS ORDERED: fentaNYL 100 MCG/2 ML INJECTION (J3010) IV (14:30)
[2018-07-09] MEDS: PERCOCET 5MG/325MG TAB PO ×2 (14:30→15:00)
[2018-07-09] MEDS ORDERED: METOCLOPRAMIDE INJ 10MG/2ML VIAL (J2765) IV (14:30)
[2018-07-09] MEDS ORDERED: ONDANSETRON 4MG/2ML VIAL (J2405) IV (14:30)
[2018-07-09] MEDS ORDERED: LR 1,000 ML IV (14:30)
[2018-07-09] MEDS ORDERED: NORCO, ANEXSIA 5/325MG TABLET (HYDROcodone/ACETAMINOPHEN) PO (14:30)
[2018-07-09] MEDS ORDERED: IBUPROFEN 600 MG TAB PO (14:30)
[2018-07-09] MEDS ORDERED: MEPERIDINE INJ 25 MG/ML VIAL (J2175) IV (14:30)
== END 2018-07-09 16:08 | disposition home or self-care (01) ==
LOC: M SDC 09:02
DX: K43.2 Incisional hernia without obstruction or gangrene (principal); K42.9 Umbilical hernia without obstruction or gangrene; I10 Essential (primary) hypertension; E78.5 Hyperlipidemia, unspecified; M12.9 Arthropathy, unspecified; D50.9 Iron deficiency anemia, unspecified; G62.9 Polyneuropathy, unspecified; R56.9 Unspecified convulsions; I69.998 Other sequelae following unspecified cerebrovascular disease; E66.9 Obesity, unspecified; Z68.39 Body mass index [BMI] 39.0-39.9, adult; Z79.899 Other long term (current) drug therapy; Z79.82 Long term (current) use of aspirin; Z87.81 Personal history of (healed) traumatic fracture; Z78.0 Asymptomatic menopausal state; Z96.642 Presence of left artificial hip joint
CPT/HCPCS: 49652

== ENCOUNTER → 2019-04-22 | Outpatient (CLI) | payer BC ==
[~2019-04-22] MED LIST changes: +ALEV220T26 PO; +ASPE10LO EX; +ASPI-161 PO; +ASPI81TA83 PO; +ATOR40TA75 PO; +BIOF4GEL2 EXT; +CORITAB5 PO; +COUM2.5T17 PO; +GABA-843 PO; +GABA-845 PO; +GABA600T4 PO; +HYDR25TA6 PO; +HYDR25TAB PO; -LIDOCAINE 1% MDV 20ML VIAL SQ; -LIDOCAINE 2% INJ 100 MG/5 ML SDV (FOR ANES.) As Ordered; +LISI10TA4 PO; +MELO15TA28 PO; -MIDAZOLAM INJ 2 MG/2 ML VIAL (J2250) As Ordered; +MULT1TAB9 PO; +NEUR300C PO; -ONDANSETRON 4MG/2ML VIAL (J2405) As Ordered; +PERC5TAB12 PO; +POLYPOW9 PO; +POLYPOW9 XX; +PRAV10TA2 PO; +PRAV10TA4 PO; -PROPOFOL 200 MG/20 ML VIAL As Ordered; -ROCURONIUM BROMIDE 50 MG/5 ML VIAL As Ordered; +TRAM50TA2 PO; +TYLE650T35 PO; +VITA200016 PO; -dexameTHASONE 4 MG/ML 1ML VIAL (J1100) As Ordered; +excedrin OR; -fentaNYL 250 MCG/5 ML INJECTION (J3010) As Ordered; +tylenol arthritis PO
--- NOTE | 2019-04-23 11:57 | REP ---
Clinical: Cervical neck pain. Technique: AP, lateral, flexion/extension, bilateral oblique, and open-mouth views of the cervical spine. Findings: Generalized age-related osteopenia and moderate multilevel degenerative changes include endplate sclerosis with disc space narrowing and marginal spurring. There appears to be grade 1 anterolisthesis at the C3-4 and C4-5 levels. Oblique views demonstrate relatively patent neural foramen. Open mouth view demonstrates normal C1-C2 articulation and odontoid process. No acute fracture / compression injury or subluxation. Impression: Generalized age-related degenerative changes and osteopenia. Grade 1 anterolisthesis at C3-4 and C4-5 suggested. Electronically Signed by John Faulkner MD 04/23/2019 02:23 A
--- NOTE | 2019-04-23 11:57 | REP ---
Clinical: Right knee pain Technique: AP, lateral, bilateral oblique and sunrise views right knee . Findings: Relatively mild osteoarthritic degenerative changes are appreciated. Findings include mild subchondral sclerosis with very minimal lateral and patellofemoral joint space narrowing as well as cortical irregularity to the lateral femoral condyle with early spurring and fraying along the anterior patellar margin. No osteophytosis. No effusion. No obvious chondrocalcinosis. No fracture or dislocation. Impression: Mild osteoarthritic age-related degenerative changes. Electronically Signed by John Faulkner MD 04/23/2019 02:36 A
--- NOTE | 2019-04-23 11:57 | REP ---
Clinical: Left knee pain Technique: AP, lateral, bilateral oblique and sunrise views left knee . Findings: Essentially generalized age-related degenerative changes are appreciated. Findings include mild subchondral sclerosis with very minimal medial and patellofemoral joint space narrowing. No osteophytosis. No effusion. No obvious chondrocalcinosis. No fracture or dislocation. Impression: Essentially generalized age-related degenerative changes. Electronically Signed by John Faulkner MD 04/23/2019 02:33 A
--- NOTE | 2019-04-23 11:58 | REP ---
Clinical: Right shoulder pain. Technique: Internal rotation, external rotation, and Y view of the right shoulder. Findings: Age-related arthritic changes include subtle cortical irregularity and early spurring at the acromioclavicular joint as well as subtle irregular sclerosis involving the calcified glenoid rim. No acute fracture dislocation. Subacromial space is normal. No periarticular calcified loose bodies noted. Impression: Mild age-related arthritic changes. Electronically Signed by John Faulkner MD 04/23/2019 02:55 A
== END ==
LOC: M LRY 09:26
PROVIDERS: ATTEND Nurse Practitioner Adult Health
DX: M54.2 Cervicalgia (principal); M25.511 Pain in right shoulder; M17.0 Bilateral primary osteoarthritis of knee; M81.0 Age-related osteoporosis without current pathological fracture

== ENCOUNTER → 2019-07-28 | Outpatient (REF) | payer BC | LOC: M SFHCLERA 15:43 | PROVIDERS: ATTEND Family Medicine | DX: Z53.9 Procedure and treatment not carried out, unspecified reason (principal) ==

== ENCOUNTER → 2019-07-31 | Outpatient (REF) | payer BC ==
[2019-07-31 17:43] LABS: ALBUMIN 3.6 GM/DL (3.2-5.2); ALT/SGPT 25 U/L (12-78); BILIRUBIN,TOTAL 1.5 MG/DL (0.2-1.0); BLOOD UREA NITROGEN 30 MG/DL (7-18); CARBON DIOXIDE LEVEL 27 MEQ/L (21-32); CHLORIDE LEVEL 108 MEQ/L (98-107); CREATININE FOR GFR 0.72 MG/DL (0.55-1.30); GLOMERULAR FILTRATION RATE > 60.0 (>45); GLUCOSE, FASTING 89 MG/DL (70-100); POTASSIUM SERUM 3.5 MEQ/L (3.5-5.1); SODIUM LEVEL 143 MEQ/L (136-145); TOTAL PROTEIN 6.7 GM/DL (6.4-8.2)
== END ==
LOC: M SFHCLERA 10:31
PROVIDERS: ATTEND Family Medicine
DX: I10 Essential (primary) hypertension (principal)

== ENCOUNTER → 2020-05-18 | Outpatient (CLI) | payer BC ==
[~2020-05-18] MED LIST changes: +ACET650T61 PO; -TYLE650T35 PO
--- NOTE | 2020-05-24 14:52 | DEXA ---
AP SPINE L1 - L4 1.310 1.1 2.7 LT FEMUR TOTAL LT NECK RT FEMUR TOTAL 0.879 -1.0 0.2 RT NECK 1.074 0.3 1.8 TOTAL BODY TOTAL OTHER COMMENTS: Normal bone densitometry of the spine. Normal bone densitometry of the right hip. The increased density of the spine does not represent significant change. The decreased density of the right hip does represent significant change. The density of the spine has increased 4.2% since the initial exam on 08/16/2004. The increased 1.9% since most recent exam on 10/11/2011. The density of the right hip has decreased 15.9% since the initial exam on 08/16/2004. The density of the right hip has decreased 9.6% since the most recent exam on 10/11/2011. FOLLOW-UP: Recommendation for the next bone density exam: 5 years. PARUL
--- NOTE | 2020-05-25 14:59 | REP ---
BILATERAL SCREENING MAMMOGRAM WITH 3D TOMOSYNTHESIS HISTORY: No family history of breast cancer. [facility] lifetime risk of breast cancer 5.9%. Comparison study 02/23/2017 as well as other prior exams. FINDINGS: Bilateral mammography performed in the MLO and CC projections with 3D tomosynthesis. There is mild scattered fibroglandular tissue bilaterally in a fairly symmetrical pattern. I suspect a smoothly marginated 4 mm nodular opacity in the medial right breast anteriorly at the 3 oclock position. This is only visualized in the CC projection and not on the MLO projection. I see no other evidence of mass. No suspicious clusters of microcalcifications are seen. IMPRESSION: ACR 0 incomplete. Suspect 4 mm well circumscribed nodular opacity medial right breast anteriorly, only seen in the CC projection. Recommend spot compression view at that location in the CC projection as well as a tomographic right ML sequence. Further imaging and ultrasound may also be necessary. ACR 0 incomplete. BIRADS 0: BI-RADS/ACR category 0 mammogram. Incomplete: Need additional imaging evaluation and/or prior mammograms for comparison. This mammogram was interpreted with the aid of an FDA approved computer aided detection system. The patient states she has not had a clinical breast exam in over one year. Send letter 0. MTDD
== END ==
LOC: M WHC 12:43
PROVIDERS: ATTEND Family Medicine
DX: Z12.31 Encounter for screening mammogram for malignant neoplasm of breast (principal); M81.0 Age-related osteoporosis without current pathological fracture; M85.852 Other specified disorders of bone density and structure, left thigh

== ENCOUNTER → 2020-08-09 | Outpatient (CLI) | payer BC ==
--- NOTE | 2020-08-09 16:33 | REP ---
INDICATION: ADDITIONAL VIEWS RT BREAST. Screening mammography March 17, 2020 was BI-RADS category 0 incomplete because of a possible 4 mm well score circumscribed nodular density in the medial aspect the right breast seen only in the craniocaudal projection. COMPARISON: May 18, 2020, November 23, 2016, and October 11, 2011 prior mammography. TECHNIQUE: Magnified focal spot-compression mammograms images are acquired in the craniocaudal, mediolateral, and mediolateral oblique projection. Targeted right breast sonography is performed the medial right mid breast as well. This mammogram was interpreted with the aid of an FDA-approved computer-aided detection system. FINDINGS: Mammography features: Scattered fibroglandular elements are again seen. On the craniocaudal view the recently identified relatively low-density well-circumscribed 4 mm nodule is again seen. This was felt to have been new when compared with the older studies. This cannot be observed on the orthogonal mediolateral or mediolateral oblique projection images. No other significant mammographic finding. The Volpara volumetric breast density pattern is B. Targeted ultrasound: Scanning through the 2-3 o'clock region of the right breast medially demonstrates fairly homogeneous stromal elements. There is a hypoechoic oval-shaped nodule 3 mm in diameter by 4 mm in diameter in the 2-3 o'clock position 2 cm from the nipple which is felt to account for the mammographic opacity. This is well defined but there is not enhanced through transmission although it is quite small. It is not felt to a beat simple cysts criteria by ultrasound. IMPRESSION: BIRADS/ACR category 4 suspicious right breast mammographic and sonographic findings. Biopsy recommended. This patient's Tyrer-Cuzick lifetime breast cancer risk assessment score is 2.9%. RECOMMENDATION: Ultrasound-guided needle biopsy right breast nodule with clip placement and post clip placement right breast mammography recommended.. The patient letter being requested is M4. <Electronically signed by Josh Reis > 08/09/20 [id number]
== END ==
LOC: M WHC 13:49
PROVIDERS: ATTEND Family Medicine
DX: R92.2 Inconclusive mammogram (principal); N63.12 Unspecified lump in the right breast, upper inner quadrant; Z97.8 Presence of other specified devices

== ENCOUNTER 2020-09-17 10:46 | Emergency (ER) | payer OTHER, BC ==
[~2020-09-17] VITALS: Ht 157.5 cm; Wt 100.9 kg
[~2020-09-17 10:46] MED LIST changes: +GABA-282 PO; -GABA-843 PO; +HYDR-3490 PO; -HYDR25TAB PO; +LISI10TA22 PO
--- OUTSIDE RECORDS SUMMARY | 2020-09-17 10:56 | CCD ---
Author Author [facility] Organization [facility] Address Unknown Phone Unavailable Care Team Providers Care Manager Non Profit Name Role Phone Franc Siddiqui Unavailable PROBLEMS Type Condition ICD9-CM Code [id number] Code Onset Dates Condition S tatus SNOMED Code Notes Problem Primary osteoarthritis of left knee M17.12 Acti ve 898580055 Problem Lumbar degenerative disc disease M51.36 Active 84691150 Problem History of TIA (transient ischemic attack) Z86.73 Active 318042094 Problem Primary osteoarthritis of left hip M16.12 Activ e 361296984 Problem Non morbid obesity due to excess calories E66.09 Active 050167491 Problem Essential (primary) hypertension I10 Active 84492594 Problem BMI 37.0-37.9, adult Z68.37 Active 801917441 Problem Status post left hip replacement Z96.642 Active 330885712 Problem Spinal stenosis at L4-L5 level M48.061 Active 1 4784212 Problem Cervical pain (neck) M54.2 Active 73842452 Problem Pain in left knee M25.562 Active 53088871415007 2 Problem Body mass index (BMI) 37.0-37.9, adult Z68.37 A ctive 404218842 Problem 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 Active 112228065 Problem Obesity, unspecified E66.9 Active 859282205 Problem Metatarsalgia of left foot M77.42 Active 76345 3887929277 Problem Mixed hyperlipidemia E78.2 Active 712619170 Problem Pain in right knee M25.561 Active 68145244 Problem Pain in right shoulder M25.511 Active 339418548 78846352 Problem Dyslipidemia E78.5 Active 691958628 Problem Essential hypertension I10 Active 31144847 ALLERGIES No Known Allergies ENCOUNTERS from 1955 to 2020-08-11 Encounter Location Date Provider Diagnosis [facility] [address] [place] [address] Jul, Franc Siddiqui IMMUNIZATIONS Vaccine Route Administration Date Status Influenza (18 yrs & older) Flublok IM Intramuscular Jun 30, 2020 Administered Influenza (18 yrs & older) Flublok IM Intramuscular October 29 20 Administered TDAP 0.5mL (Boostrix) IM Intramuscular October 30, 2019 Administe red Pneumococcal 0.5mL (Prevnar 13) IM Intramuscular October 30, 2019 Administered Influenza (6mo & up) Fluzone Unknown November 02, 2014 Ref used SOCIAL HISTORY Tobacco Use: Social History Observation Description Date Details (start date - stop date) Never Smoker Sex Assigned At : Social History Observation Description Sex Assigned At Unknown Education: Question Answer Notes Level of Education: Not Finished College Audit Question Answer Notes Total Score: 1 Interpretation: Alcohol Education Language: Question Answer Notes Languages spoken: Bolivian Taoist: Question Answer Notes Taoist 13 Taoism Sexual Hx: Question Answer Notes Had sex in the last 12 months (vaginal, oral, or anal)? No Have you ever had an STD? No Drug and Alcohol Question Answer Notes Total Score: 0 Interpretation: No problems reported Alcohol Screening: Question Answer Notes Did you have a drink containing alcohol in the past year? No Points 0 Interpretation Negative BMI Care Goal Follow-Up Question Answer Notes Above Normal BMI Follow-Up Dietary management educatio n, guidance, and counseling, Dietary needs education, Exercise promotion: strength training Tobacco Use: Question Answer Notes Are you a: never smoker REASON FOR REFERRAL No Information VITAL SIGNS No information MEDICATIONS Medication SIG (Take, Route, Frequency, Duration) Notes Start Da te End Date Status Aspirin 81 MG 1 tablet Orally Once a day Active Vitamin D 2000 UNIT 1 tab Orally daily Active Meloxicam 7.5 MG 1 tablet Orally Twice a day for 90 day(s) Active Multivitamin Adults - 1 tab Orally Daily Active MiraLax - 17 grams mixed in 6 ounces of water Orally Once a day for 30 day(s) Mar, Active Atorvastatin Calcium 40MG 1 tablet Orally Once a day for 90 days Active Hydrochlorothiazide 25MG 1 tablet Orally Once a day for 90 Active Shingrix 50 MCG/0.5ML as directed Intramuscular for 2 days Oct, Active Vitamin C 500 MG 1 tablet Orally Daily Active Aleve 220 MG 3 tablet with food or milk as needed Orally Daily Not-Taking Diclofenac Sodium 1 % Apply 4gm to feet Transderma l Every 8 hours as needed for pain for 30 Days Active Tens Unit _ as directed as directed/ for back pain every 4 hours as needed ICD10 M17.12 Mar, Active Bengay 1% cream topically prn for her knee Active Lisinopril 10 MG 1 tablet Orally Once a day for 90 day(s) Active Neurontin 600 MG 1 tablet Orally twice daily for 90 Active PROCEDURES No Information RESULTS No Results REASON FOR VISIT mammogram/ referral MEDICAL (GENERAL) HISTORY Type Description Date Medical History hypertension Medical History obesity Medical History iron deficiency anemia Medical History diverticulosis per colonoscopy Medical History osteoarthritis Medical History left-sided sciatica Medical History HLP Medical History h/o L wrist fracture (10/2011) Medical History 01/27/2011 left sided TIA Medical History 06/29/16 Moderate central Canal Stenosis L4-5 level. Medical History Interdigital neuroma of the foot Medical History history of basal cell carcinoma Surgical History No personal of FHx of severe reaction to anesthesia Surgical History colonoscopy 2003 Surgical History cholecystectomy 2002 Surgical History appendectomy 07/1975 Surgical History teeth extractions 2003 Surgical History total hip left- [facility] 09/12/16 Surgical History colonoscopy 03/2017 Surgical History basal cell carcinoma removal, right shou lder 2010 Hospitalization History left sided numbness - TIA ([facility]) January 2011 Hospitalization History total hip replacement ([facility]) 09/12/16 Goals Section No Information Health Concerns No Information MEDICAL EQUIPMENT No Information MENTAL STATUS No Information FUNCTIONAL STATUS No Information ASSESSMENTS No Information PLAN OF TREATMENT Medication Medication Name Sig Start Date Stop Date Atorvastatin Calcium 40MG 1 tablet Orally Once a day for 90 days Bengay 1% cream topically prn for her knee Lisinopril 10 MG 1 tablet Orally Once a day for 90 day(s) Meloxicam 7.5 MG 1 tablet Orally Twice a day for 90 day(s) Shingrix 50 MCG/0.5ML as directed Intramuscular for 2 days 2019 Diclofenac Sodium 1 % Apply 4gm to feet Transderma l Every 8 hours as needed for pain for 30 Days Neurontin 600 MG 1 tablet Orally twice daily for 90 Hydrochlorothiazide 25MG 1 tablet Orally Once a day for 90 Next Appt Details Provider Name:Franc Siddiqui, 2020-08-12 07:15:00 AM, [address] [place], [address], Insurance Providers Payer Name Payer Address Payer Phone Insured Name Patient Relati onship to Insured Coverage Start Date Coverage End Date [facility] [phone] [facility] [address] [facility] [address] STEPHANI DOMINGUEZ self
--- OUTSIDE RECORDS SUMMARY | 2020-09-17 10:56 | CCD ---
Author Author [facility] Organization [facility] Address Unknown Phone Unavailable Care Team Providers Care Contracts Manager Name Role Phone Franc Siddiqui Unavailable PROBLEMS Type Condition ICD9-CM Code [id number] Code Onset Dates Condition S tatus SNOMED Code Notes Problem Primary osteoarthritis of left knee M17.12 Acti ve 319848971 Problem Lumbar degenerative disc disease M51.36 Active 68429700 Problem History of TIA (transient ischemic attack) Z86.73 Active 628214717 Problem Primary osteoarthritis of left hip M16.12 Activ e 632159356 Problem Non morbid obesity due to excess calories E66.09 Active 308064570 Problem Essential (primary) hypertension I10 Active 17422766 Problem BMI 37.0-37.9, adult Z68.37 Active 701268541 Problem Status post left hip replacement Z96.642 Active 790569664 Problem Spinal stenosis at L4-L5 level M48.061 Active 1 8606402 Problem Cervical pain (neck) M54.2 Active 34212454 Problem Pain in left knee M25.562 Active 70295744144339 2 Problem Body mass index (BMI) 37.0-37.9, adult Z68.37 A ctive 136550691 Problem 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 Active 825743067 Problem Obesity, unspecified E66.9 Active 902503830 Problem Metatarsalgia of left foot M77.42 Active 34831 5951869821 Problem Mixed hyperlipidemia E78.2 Active 276368042 Problem Pain in right knee M25.561 Active 78558858 Problem Pain in right shoulder M25.511 Active 954806554 03013413 Problem Dyslipidemia E78.5 Active 101189682 Problem Essential hypertension I10 Active 97042894 ALLERGIES No Known Allergies ENCOUNTERS from 1955 to 2020-07-01 [facility]counter [facility] [address] [place] [address] Jun, Franc Siddiqui IMMUNIZATIONS Vaccine Route Administration Date [...] Education Language: Question Answer Notes Languages spoken: Irish Gnosticist: Question Answer Notes Gnosticist 13 Sikh Sexual Hx: Question Answer Notes Had sex [...] MEDICATIONS Medication SIG (Take, Route, Frequency, Duration) Start Date En d Date Status Aspirin 81 MG 1 tablet Orally Once a day Active Neurontin 600 MG 1 tablet Orally twice daily for 90 day(s) May, Active MiraLax - 17 grams mixed in 6 ounces of water Oral ly Once a day for 30 day(s) Mar, Active Diclofenac Sodium 1 % Apply 4gm to feet Transderma l Every 8 hours as needed for pain for 30 Days Active Multivitamin Adults - 1 tab Orally Daily Active Atorvastatin Calcium 40MG 1 tablet Orally Once a day for 90 days Active Vitamin D 2000 UNIT 1 tab Orally daily Ac tive Lisinopril 10 MG 1 tablet Orally Once a day for 90 day(s) Active Meloxicam 7.5 MG 1 tablet Orally Twice a day for 90 day(s) Active Tens Unit _ as directed as directed/ for back pain every 4 hours as needed ICD10 M17.12 Mar, Active Hydrochlorothiazide 25MG 1 tablet Orally Once a day for 90 days Active Shingrix 50 MCG/0.5ML as directed Intramuscular for 2 days Oct, Active Bengay 1% cream topically prn for her knee Active Vitamin C 500 MG 1 tablet Orally Daily Ac tive Aleve 220 MG 3 tablet with food or milk as needed Orally Daily Not-Taking PROCEDURES No Information RESULTS No Results REASON FOR VISIT New Refill Request MEDICAL (GENERAL) HISTORY Type Description Date Medical [...] extractions 2003 Surgical History total hip left- [facility] 09/12/16 Surgical History colonoscopy 03/2017 Surgical History basal cell carcinoma removal, right shou lder 2010 Hospitalization History left sided numbness - TIA ([facility]) January 2011 Hospitalization History total hip replacement ([facility]) 09/12/16 Goals Section No Information Health Concerns No Information MEDICAL EQUIPMENT No Information MENTAL STATUS No Information FUNCTIONAL STATUS No Information ASSESSMENTS No Information PLAN OF TREATMENT Medication Medication Name Sig Start Date Stop Date Atorvastatin Calcium 40MG 1 tablet Orally Once a day for 90 days Bengay 1% cream topically prn for her knee Meloxicam 7.5 MG 1 tablet Orally Twice a day for 90 day(s) Diclofenac Sodium 1 % Apply 4gm to feet Transderma l Every 8 hours as needed for pain for 30 Days Neurontin 600 MG 1 tablet Orally twice daily for 90 day(s) 17 Oc t, 2017 Hydrochlorothiazide 25MG 1 tablet Orally Once a day for 90 days Shingrix 50 MCG/0.5ML as directed Intramuscular for 2 days 2019 Lisinopril 10 MG 1 tablet Orally Once a day for 90 day(s) Insurance Providers Payer Name Payer Address Payer Phone Insured Name Patient Relati onship to Insured Coverage Start Date Coverage End Date [place] [phone] [facility] [address] [facility] [id number] STEPHANI DOMINGUEZ self
--- OUTSIDE RECORDS SUMMARY | 2020-09-17 10:56 | CCD ---
Author Author [facility] Organization [facility] Address Unknown Phone Unavailable Care Team Providers Care Enterprise Business Architect Name Role Phone Franc Siddiqui Unavailable PROBLEMS Type Condition ICD9-CM Code [id number] Code Onset Dates Condition S tatus SNOMED Code Notes Problem Primary osteoarthritis of left hip M16.12 Activ e 219558194 Problem Primary osteoarthritis of left knee M17.12 Acti ve 999612248 Problem Essential (primary) hypertension I10 Active 25207597 Problem History of TIA (transient ischemic attack) Z86.73 Active 167398908 Problem Status post left hip replacement Z96.642 Active 896210572 Problem Non morbid obesity due to excess calories E66.09 Active 934298767 Problem Metatarsalgia of left foot M77.42 Active 46888 2384562783 Problem BMI 37.0-37.9, adult Z68.37 Active 395255319 Problem Cervical pain (neck) M54.2 Active 95885498 Problem Pain in left knee M25.562 Active 90649101824680 2 Problem Pain in right knee M25.561 Active 00166680 Problem Body mass index (BMI) 37.0-37.9, adult Z68.37 A ctive 618316692 Problem Spinal stenosis at L4-L5 level M48.061 Active 1 9089521 Problem Mixed hyperlipidemia E78.2 Active 042026128 Problem Abnormal mammogram R92.8 Active 787126560 Problem 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 Active 631859662 Problem Lumbar degenerative disc disease M51.36 Active 37967827 Problem Pain in right shoulder M25.511 Active 390312800 30996964 Problem Obesity, unspecified E66.9 Active 922385814 Problem Dyslipidemia E78.5 Active 350577257 Problem Essential hypertension I10 Active 36211746 ALLERGIES No Known Allergies ENCOUNTERS from 1955 to 2020-09-06 Encounter Location [facility] [address] [place] [address] Aug, Franc Siddiqui IMMUNIZATIONS Vaccine Route Administration Date [...] Education Language: Question Answer Notes Languages spoken: Norwegian Islam: Question Answer Notes Islam 13 Church Sexual Hx: Question Answer Notes Had sex [...] Notes Start Da te End Date Status Vitamin C 500 MG 1 tablet Orally Daily Active Aspirin 81 MG 1 tablet Orally Once a day Active Hydrochlorothiazide 25MG 1 tablet Orally Once a day for 90 Active Meloxicam 7.5 MG 1 tablet Orally Twice a day for 90 day(s) Active Vitamin D 2000 UNIT 1 tab Orally daily Active Bengay 1% cream topically prn for her knee Active Multivitamin Adults - 1 tab Orally Daily Active Neurontin 600 MG 1 tablet Orally twice daily for 90 Active Atorvastatin Calcium 40MG 1 tablet Orally Once a day for 90 days Active Aleve 220 MG 3 tablet with food or milk as needed Orally Daily Not-Taking Diclofenac Sodium 1 % Apply 4gm to feet Transderma l Every 8 hours as needed for pain for 30 Days Active MiraLax - 17 grams mixed in 6 ounces of water Orally Once a day for 30 day(s) Mar, Active Lisinopril 10 MG 1 tablet Orally Once a day for 90 day(s) Active Tens Unit _ as directed as directed/ for back pain every 4 hours as needed ICD10 M17.12 Mar, Active Shingrix 50 MCG/0.5ML as directed Intramuscular for 2 days Oct, Not-Taking PROCEDURES No Information RESULTS No Results REASON FOR VISIT breast center referral MEDICAL (GENERAL) HISTORY Type Description Date [...] extractions 2003 Surgical History total hip left- [facility] 09/12/16 Surgical History colonoscopy 03/2017 Surgical History basal cell carcinoma removal, right shou lder 2010 Hospitalization History left sided numbness - TIA ([facility]) January 2011 Hospitalization History total hip replacement ([facility]) 09/12/16 Goals Section No Information Health Concerns No Information MEDICAL EQUIPMENT No Information MENTAL STATUS No Information FUNCTIONAL STATUS No Information ASSESSMENTS No Information PLAN OF TREATMENT No Information Insurance Providers Payer Name Payer Address Payer Phone Insured Name Patient Relati onship to Insured Coverage Start Date Coverage End Date [facility] [phone] [facility] [address] [facility] [address] STEPHANI DOMINGUEZ self
--- OUTSIDE RECORDS SUMMARY | 2020-09-17 10:56 | CCD ---
Author Author [facility] Organization [facility] Address Unknown Phone Unavailable Care Team Providers Care Motorcycle Engine Assembler Name Role Phone Franc Siddiqui Unavailable PROBLEMS Type Condition ICD9-CM Code [id number] Code Onset Dates Condition S tatus SNOMED Code Notes Problem Primary osteoarthritis of left knee M17.12 Acti ve 667039574 Problem Lumbar degenerative disc disease M51.36 Active 05841918 Problem History of TIA (transient ischemic attack) Z86.73 Active 979485398 Problem Primary osteoarthritis of left hip M16.12 Activ e 564517148 Problem Non morbid obesity due to excess calories E66.09 Active 004244786 Problem Essential (primary) hypertension I10 Active 38356613 Problem BMI 37.0-37.9, adult Z68.37 Active 056252347 Problem Status post left hip replacement Z96.642 Active 268603505 Problem Spinal stenosis at L4-L5 level M48.061 Active 1 9728777 Problem Cervical pain (neck) M54.2 Active 59748948 Problem Pain in left knee M25.562 Active 88268601722564 2 Problem Body mass index (BMI) 37.0-37.9, adult Z68.37 A ctive 805237506 Problem 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 Active 258309220 Problem Obesity, unspecified E66.9 Active 660790350 Problem Metatarsalgia of left foot M77.42 Active 11265 4607633129 Problem Mixed hyperlipidemia E78.2 Active 066629746 Problem Pain in right knee M25.561 Active 17232028 Problem Pain in right shoulder M25.511 Active 352998350 40416794 Problem Dyslipidemia E78.5 Active 243141972 Problem Essential hypertension I10 Active 42307858 ALLERGIES No Known Allergies ENCOUNTERS from 1955 to 2020-07-01 Encounter Location Date [facility] [address] [place] [address] Jun, Franc Siddiqui Encounter for immunization Z23 IMMUNIZATIONS Vaccine Route Administration Date Status Influenza [...] Education Language: Question Answer Notes Languages spoken: Egyptian Cheondoism: Question Answer Notes Cheondoism 13 Moravian Sexual Hx: Question Answer Notes Had sex [...] milk as needed Orally Daily Not-Taking PROCEDURES Procedure Date Ordered Result Body Site Immunization: Flublok Quadrivalent (18 years & older) 0.5mL IM (Influenza) 2020-06-30 N/A RESULTS No Results REASON FOR VISIT flu MEDICAL (GENERAL) HISTORY Type Description Date Medical [...] extractions 2003 Surgical History total hip left- [facility] 09/12/16 Surgical History colonoscopy 03/2017 Surgical History basal cell carcinoma removal, right shou lder 2010 Hospitalization History left sided numbness - TIA ([facility]) January 2011 Hospitalization History total hip replacement ([facility]) 09/12/16 Goals Section No Information Health Concerns No Information MEDICAL EQUIPMENT No Information MENTAL STATUS No Information FUNCTIONAL STATUS No Information ASSESSMENTS Encounter Date Diagnosis Notes Jun, Encounter for immunization (ICD-10 - Z23 ) PLAN OF TREATMENT Medication Medication Name Sig [...] MCG/0.5ML as directed Intramuscular for 2 days 05 Ma 2019 Lisinopril 10 MG 1 tablet Orally Once a day for 90 day(s) Treatment Notes Assessment Notes Clinical Notes Encounter for immunization Patient Educated with: FLU Vaccine, Inactivated [id number] (FLU Vaccine, Inactivated [id number].pdf) Insurance Providers Payer Name Payer Address Payer Phone Insured Name Patient Relati onship to Insured Coverage Start Date Coverage End Date [place] [phone] [facility] [address] [facility] [id number] [place]INGUE[place] self
--- OUTSIDE RECORDS SUMMARY | 2020-09-17 10:56 | CCD | Summary of Care ---
Author Author [facility] Organization [facility] Address Unknown Phone Unavailable Care Team Providers Care Arc And Gas Welder Name Role Phone Franc Siddiqui PCP Reason for Referral * Diagnostic Radiology (Routine) Referred By Contact Referred To Contact Status Reason Specialty Diagnoses / Procedures Sarah Maier NP [address] [place] [address] Email: [email or web address] Authorized Radiology Diagnoses Breast mass, right P rocedures US Breast Biopsy Procedure Ultrasound Guided Reason for Visit * Diagnostic Radiology (Routine) Referred By Contact Referred To Contact Status Reason Specialty Diagnoses / Procedures Sarah Maier NP [address] [place] [address] Email: [email or web address] Authorized Radiology Diagnoses Breast mass, right P rocedures US Breast Biopsy Procedure Ultrasound Guided Encounter Details Care Team Description Date Type Department Breast mass, right 09/09/2020 [facility]iology [facility] Encounter [facility] [address] [place] [id number] Allergies No Known Allergiesdocumented as of this encounter (statuses as of 09/10/2020) Medications End Date Status Medication Sig Dispensed Refills Start Date Active hydroCHLOROthiazide 12.5 Take 20 mg by 0 MG Oral Capsule mouth daily (MICROZIDE)Indications: Indications: Hypertension High Blood Pressure Disorder Active Gabapentin 100 MG Oral Take 600 mg 0 Capsule by mouth Two (NEURONTIN)Indications: p Times Daily Indications: p Active Meloxicam 7.5 MG Oral Take 7.5 mg 0 Tablet (MOBIC) by mouth daily Active Lisinopril 10 MG Oral Take 10 mg by 0 Tablet (ZESTRIL) mouth daily Active Multiple Take by mouth 0 Vitamins-Minerals daily (ONE-A-DAY 50 PLUS PO) Active Atorvastatin Calcium 10 Take by mouth 0 MG Oral Tablet every evening (LIPITOR)Indications: Indications: patient does not remember patient does the dose not remember the dose Active UNKNOWN TO Indications: 0 PATIENTIndications: foot foot cream cream for arthrist for arthrist documented as of this encounter (statuses as of 09/10/2020) Active Problems No known active problemsdocumented as of this encounter (statuses as of 09/10/2020) Social History Date Tobacco Use Types Packs/Day Years Used Never Smoker Smokeless Tobacco: Never Used Drinks/Week oz/Week Comments Alcohol Use once a year Yes Social Isolation Answer Date Recorded In a typical week, how many times do you talk on Twice a w [place] 09/09/2020 the phone with family, friends, or neig hbors? How often do you get together with friends or More than th ree times a week 09/09/2020 relatives? How often do you attend roman catholic or congregation Never 09/09/2020 services? Do you belong to any clubs or organizations such No 09/09/2020 as roman catholic groups, unions, fraternal or athletic groups, or school groups? How often do you attend meetings of the clubs or Never 09/09/2020 organizations you belong to? Are you now , , , , Divorce d 09/09/2020 never or living with a partner? Physical Activity Answer Date Recorded On average, how many days per week do you engage 0 days 09/09/2020 in moderate to strenuous exercise (like walking fast, running, jogging, dancing, swimmi ng, biking, or other activities that cause a light or heavy sweat)? On average, how many minutes do you engage in 0 min 09/09/2020 exercise at this level? Stress Answer Date Recorded Do you feel stress - tense, restless, nervous, or Only a l ittle 09/09/2020 anxious, or unable to sleep at night be cause your mind is troubled all the time - these d ays? Financial Resource Strain Answer Date Recorde d How hard is it for you to pay for the very basics Not hard at all 09/09/2020 like food, housing, medical care, and h eating? Intimate Partner Violence Answer Date Recorde d Within the last year, have you been afraid of your No 09/09/2020 partner or ex-partner? Within the last year, have you been humiliated or No 09/09/2020 emotionally abused in other ways by you r partner or ex-partner? Within the last year, have you been kicked, hit, No 09/09/2020 slapped, or otherwise physically hurt b y your partner or ex-partner? Within the last year, have you been raped or No 09/09/2020 forced to have any kind of sexual activ ity by your partner or ex-partner? Food Insecurity Answer Date Recorded Within the past 12 months, you worried that your Never cheryle e 09/09/2020 food would run out before you got money to buy more. Within the past 12 months, the food you bought Never true 09/09/2020 just didn't last and you didn't have mo saida to get more. Transportation Needs Answer Date Recorded In the past 12 months, has lack of transportation No 09/09/2020 kept you from medical appointments or f rom getting medications? In the past 12 months, has lack of transportation No 09/09/2020 kept you from meetings, work, or gettin g things needed for daily living? Sex Assigned at Date Recorded Not on file Date Recorded COVID-19 Exposure Response 09/09/2020 8:45 AM EST In the last month, have you been in contact with No / Unsure someone who was confirmed or suspected to have Coronavirus / COVID-19? documented as of this encounter Last Filed Vital Signs Reading Time Taken Comments Vital Sign 174/98 09/09/2020 9:54 AM EST Blood Pressure 71 09/09/2020 9:54 AM EST Pulse 37 C (98.6 F) 09/09/2020 9:54 AM EST Temperature 16 09/09/2020 9:54 AM EST Respiratory Rate 96% 09/09/2020 9:54 AM EST Oxygen Saturation - - Inhaled Oxygen Concentration 99.8 kg (220 lb) 09/09/2020 9:54 AM EST Weight 157.5 cm (5' 2") 09/09/2020 9:54 AM EST Height 40.24 09/09/2020 9:54 AM EST Body Mass Index documented in this encounter Discharge Instructions * Instructions* Aracely Schneider RN - 09/09/2020 INSTRUCTIONS AFTER YOUR IMAGE GUIDED BREAST BIOPSY WHAT TO EXPECT: Some mild discomfort, tenderness and bruising are normal after your procedu re. ACTIVITY: Avoid strenuous activity or anything that requires repetitive arm movements for 48 hours. This includes activities such as housework, yoga, weight lifting, shoveling, gardening, running etc. Avoid lifting objects weighing more than 5 lbs with either arm. CARING FOR YOUR BIOPSY SITE: Apply a cloth covered ICE PACK to the site 15 minutes on and 45 minutes off every hour for 3-4 hours after the biopsy and then as needed for comfort. Wear a support bra (or sports bra) for 24 hours after the biopsy, even whil e sleeping. Keep the dressing clean and dry for 24 hours. You may shower after 24 hours but do not soak the biopsy site under water for 1 week. You may remove the outer dressing in 48 hours on Sun Leave the steri-strips in place for 5 days. They may begin to peel off on their own. You may remove the steri-strips on Sun If a pressure dressing has been applied; it must stay on for 4 hours. Check the biopsy site every hour while it is in place. This is done by pulling the wr ap away from the biopsy site to assess the wound. Re-cover it carefully. If ther e are no problems noted, this pressure wrap may be removed at . MEDICATION: You may use acetaminophen/Tylenol for pain. AVOID aspirin, ibuprofen and na proxen for 24 hours as these medications may increase the risk of bleeding and b ruising. You may resume taking all other medications as instructed by your doctor. COMPLICATIONS: Problems occurring after you leave are not common. Bruising is NORMAL and should go away in 5-7 days. Some swelling is also NORMAL, but if the area becomes extr kallie swollen and painful, or if you experience any of the following symptoms, mali emerson call the appropriate contact number listed below. For severe symptoms, go to your nearest emergency room. A blood soaked dressing. Pain that is not relieved after using an ice pack and acetaminophen/Tylenol Redness, swelling, drainage at the procedure site. Fever over 101 F RESULTS: You will be notified of your results by your referring doctor . These are typically available within 2-3 days. CONTACTS: [facility] . Sunday-Sunday 7:30AM-4:30PM . . [phone] . after 4:30pm and all weekends and Holidays . [phone] [facility] . . . . . . . Sunday-Sunday 7:30AM-4:30PM . . [phone] . after 4:30pm and all weekends and Holidays. . [phone] [facility] [address] . Sunday - Sunday 7:00am-5:00pm . .[phone] . after 5:0 0pm and all weekends and Holidays. go to the nearest Emergency Rm documented in this encounter Plan of Treatment Date/Time Name Type Priority Associated Diag noses 09/09/2020 11:14 AM EST US Breast Biopsy Imaging Routine Breast mass, right Procedure Ultrasound Guided 09/09/2020 3:56 PM EST Surgical Pathology Exam Pathology and Routine ( Only) Cytology Order Schedule Name Type Priority Associated Diag noses As Needed for 1 Occurrences starting until 09/09/2020 US Breast Biopsy Imaging Routine Breast mass, right Procedure Ultrasound Guided Once for 1 Occurrences starting 09/09/19 until 09/09/2020 Surgical Pathology Exam Pathology and Routine ( Only) Cytology Once for 1 Occurrences starting 09/09/19 21 until 09/09/2020 Surgical Pathology Exam Pathology and Routine ( Only) Cytology Health Maintenance Due Date Last Done Comments Hepatitis C Screening (B. 1955 2774-7502) MMR Vaccines (1 of - 1956 Standard series) Varicella Vaccines (1 of 1956 2 - 2-dose childhood series) Colon Cancer Screening 10 12/28/2003 yrs Zoster Vaccines (1 of 2) 12/28/2003 Osteoporosis Screening 2 2018 yr Pneumococcal Vaccine: 65+ 2018 Years (1 of 1 - PPSV23) DTaP,Tdap,and Td Vaccines 11/27/2019 10/30/2019 (2 - Td) Breast Cancer Screening 2 05/18/2022 05/18/2020 years Influenza Vaccine Completed 06/30/2020, 10/30/2019 HIB Vaccines Aged Out No longer eligible based on patient's age to complete this topic Hepatitis A Vaccines Aged Out No longer eligibl e based on patient's age to complete this topic Hepatitis B Vaccines Aged Out No longer eligibl e based on patient's age to complete this topic IPV Vaccines Aged Out No longer eligible based on patient's age to complete this topic Pneumococcal Vaccine: Aged Out No longer eligib le based on patient's age to Pediatrics (0 to 5 Years) complete this topic and At-Risk Patients (6 to 64 Years) documented as of this encounter Implants Device Identifier Shelf Expiration Date Model / Serial / L ot Implanted Type Area Manufactur er 01/06/2021 [id number] / / [id number] [facility] [employer] - Right: Breast HOLOGIC [id number] Implanted: Qty: 1 on 09/09/2020 by Pedro Danielson MD at [facility] INPATIENT Description:2:00 documented as of this encounter Results Not on filedocumented in this encounter Visit Diagnoses Diagnosis Breast mass, right Lump or mass in breast documented in this encounter
--- OUTSIDE RECORDS SUMMARY | 2020-09-17 10:56 | CCD ---
Author Author [facility] Organization [facility] Address Unknown Phone Unavailable Care Team Providers Care Professor Of Art History Name Role Phone Franc Siddiqui Unavailable PROBLEMS Type Condition ICD9-CM Code [id number] Code Onset Dates Condition S tatus SNOMED Code Notes Problem Primary osteoarthritis of left knee M17.12 Acti ve 153453337 Problem Lumbar degenerative disc disease M51.36 Active 62038389 Problem History of TIA (transient ischemic attack) Z86.73 Active 089453051 Problem Primary osteoarthritis of left hip M16.12 Activ e 860578844 Problem Non morbid obesity due to excess calories E66.09 Active 120877705 Problem Essential (primary) hypertension I10 Active 97285013 Problem BMI 37.0-37.9, adult Z68.37 Active 666044933 Problem Status post left hip replacement Z96.642 Active 210723507 Problem Spinal stenosis at L4-L5 level M48.061 Active 1 5327691 Problem Cervical pain (neck) M54.2 Active 68408272 Problem Pain in left knee M25.562 Active 67650950103665 2 Problem Body mass index (BMI) 37.0-37.9, adult Z68.37 A ctive 419056628 Problem 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 Active 189816889 Problem Obesity, unspecified E66.9 Active 758224932 Problem Metatarsalgia of left foot M77.42 Active 37688 0588452733 Problem Mixed hyperlipidemia E78.2 Active 153541450 Problem Pain in right knee M25.561 Active 07418318 Problem Pain in right shoulder M25.511 Active 809339632 35432478 Problem Dyslipidemia E78.5 Active 779198431 Problem Essential hypertension I10 Active 88473523 ALLERGIES No Known Allergies ENCOUNTERS from 1955 to 2020-07-06 [facility]counter [facility] [address] [place] [address], Franc Siddiqui IMMUNIZATIONS Vaccine Route Administration [...] Education Language: Question Answer Notes Languages spoken: Surinamese Latter Day: Question Answer Notes Latter Day 13 Evangelical Sexual Hx: Question Answer Notes Had sex [...] Information RESULTS No Results REASON FOR VISIT Mammogram MEDICAL (GENERAL) HISTORY Type Description Date Medical [...] extractions 2003 Surgical History total hip left- [facility] 09/12/16 Surgical History colonoscopy 03/2017 Surgical History basal cell carcinoma removal, right shou lder 2010 Hospitalization History left sided numbness - TIA ([facility]) January 2011 Hospitalization History total hip replacement ([facility]) 09/12/16 Goals Section No Information Health [...] Insured Coverage Start Date Coverage End Date [place] [address] [phone] [place] [address] [address] [facility] [id number] STEPHANI DOMINGUEZ self
--- OUTSIDE RECORDS SUMMARY | 2020-09-17 10:56 | CCD ---
Author Author [facility] Organization [facility] Address Unknown Phone Unavailable Care Team Providers Care Network Pricing Consultant Name Role Phone Franc Siddiqui Unavailable PROBLEMS Type Condition ICD9-CM Code [id number] Code Onset Dates Condition S tatus SNOMED Code Notes Problem Primary osteoarthritis of left hip M16.12 Activ e 564557687 Problem Primary osteoarthritis of left knee M17.12 Acti ve 729039978 Problem Essential (primary) hypertension I10 Active 56677363 Problem History of TIA (transient ischemic attack) Z86.73 Active 919741825 Problem Status post left hip replacement Z96.642 Active 016858398 Problem Non morbid obesity due to excess calories E66.09 Active 482587122 Problem Metatarsalgia of left foot M77.42 Active 75991 8074856934 Problem BMI 37.0-37.9, adult Z68.37 Active 821156390 Problem Cervical pain (neck) M54.2 Active 95173048 Problem Pain in left knee M25.562 Active 83568172333751 2 Problem Pain in right knee M25.561 Active 21905215 Problem Body mass index (BMI) 37.0-37.9, adult Z68.37 A ctive 638123461 Problem Spinal stenosis at L4-L5 level M48.061 Active 1 7281130 Problem Mixed hyperlipidemia E78.2 Active 182011852 Problem Abnormal mammogram R92.8 Active 459451272 Problem 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 [address] [place] [address] Jul, Franc Siddiqui Abnormal mammogram R92.8 IMMUNIZATIONS Vaccine Route Administration Date Status Influenza [...] Education Language: Question Answer Notes Languages spoken: Belgian Yazdanism: Question Answer Notes Yazdanism 13 Quaker Sexual Hx: Question Answer Notes Had sex [...] REASON FOR REFERRAL No Information VITAL SIGNS Weight 224 lbs Jul, Height 62 in Jul, BMI 40.97 kg/m2 Jul, Heart Rate 73 /min Jul, Respiratory Rate 16 /min Jul, Temperature 97.5 degrees Fahrenheit Jul, Oximetry 98% Jul, Blood pressure systolic 119 mm Hg Jul, Blood pressure diastolic 75 mm Hg Jul, MEDICATIONS Medication SIG (Take, Route, Frequency, Duration) [...] Information RESULTS No Results REASON FOR VISIT DISCUSS MAMMOGRAM MEDICAL (GENERAL) HISTORY Type Description Date Medical [...] History appendectomy 07/1975 Surgical History teeth extractions 2004 Surgical History total hip left- [facility] 09/12/16 Surgical History colonoscopy 03/2017 Surgical History basal cell carcinoma removal, right shou lder 2010 Hospitalization History left sided numbness - TIA ([facility]) January 2011 Hospitalization History total hip replacement ([facility]) 09/12/16 Goals Section No Information Health Concerns No Information MEDICAL EQUIPMENT No Information MENTAL STATUS No Information FUNCTIONAL STATUS No Information ASSESSMENTS Encounter Date Diagnosis Assessment Notes Treatment Notes Treatm ent Clinical Notes Jul, Abnormal mammogram (ICD-10 - R92.8) Patient had abnormal mammogram and diagnostic was birads 4. Reviewed that this needs to be biopsied since imaging notes high risk for further evaluation. Addressed questions and concerns for patient. Refer to breast center. PLAN OF TREATMENT Treatment Notes Assessment Notes Clinical Notes Abnormal mammogram Patient had abnormal mammogram and diagnostic was birads 4. Reviewed that this needs to be biopsied since imaging notes high risk for further evaluation. Addressed questions and concerns for patient. Refer to breast center. Next Appt Details after follow up breast center Reason: Insurance Providers Payer Name Payer Address Payer Phone Insured Name Patient Relati onship to Insured Coverage Start Date Coverage End Date BC[facility] [phone] [place] [address] [address] [facility] [id number] STEPHANI DOMINGUEZ self
--- OUTSIDE RECORDS SUMMARY | 2020-09-17 10:56 | CCD ---
Author Author [facility] Organization [facility] Address Unknown Phone Unavailable Care Team Providers Care Utilities And Maintenance Supervisor Name Role Phone Franc Siddiqui Unavailable PROBLEMS Type Condition ICD9-CM Code [id number] Code Onset Dates Condition S tatus SNOMED Code Notes Problem Primary osteoarthritis of left knee M17.12 Acti ve 239981180 Problem Lumbar degenerative disc disease M51.36 Active 03939312 Problem History of TIA (transient ischemic attack) Z86.73 Active 690320092 Problem Primary osteoarthritis of left hip M16.12 Activ e 573657943 Problem Non morbid obesity due to excess calories E66.09 Active 242194234 Problem Essential (primary) hypertension I10 Active 35202187 Problem BMI 37.0-37.9, adult Z68.37 Active 247936556 Problem Status post left hip replacement Z96.642 Active 582996500 Problem Spinal stenosis at L4-L5 level M48.061 Active 1 8163182 Problem Cervical pain (neck) M54.2 Active 45994052 Problem Pain in left knee M25.562 Active 17065917169383 2 Problem Body mass index (BMI) 37.0-37.9, adult Z68.37 A ctive 179210247 Problem 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 Active 671247694 Problem Obesity, unspecified E66.9 Active 309867729 Problem Metatarsalgia of left foot M77.42 Active 52189 6661032252 Problem Mixed hyperlipidemia E78.2 Active 842809532 Problem Pain in right knee M25.561 Active 14485793 Problem Pain in right shoulder M25.511 Active 272411287 04737933 Problem Dyslipidemia E78.5 Active 029246651 Problem Essential hypertension I10 Active 18166189 ALLERGIES No Known Allergies ENCOUNTERS from 1955 to 2020-08-02 [facility]counter [facility] [address] [place] [address] Jul, Franc Siddiqui Essential hypertension I10 IMMUNIZATIONS Vaccine Route Administration Date Status Influenza [...] Education Language: Question Answer Notes Languages spoken: Maori Protestant: Question Answer Notes Protestant 13 Judaism Sexual Hx: Question Answer Notes Had sex [...] extractions 2003 Surgical History total hip left- [facility] 09/12/16 Surgical History colonoscopy 03/2017 Surgical History basal cell carcinoma removal, right shou lder 2010 Hospitalization History left sided numbness - TIA ([facility]) January 2011 Hospitalization History total hip replacement ([facility]) 09/12/16 Goals Section No Information Health Concerns No Information MEDICAL EQUIPMENT No Information MENTAL STATUS No Information FUNCTIONAL STATUS No Information ASSESSMENTS Encounter Date Diagnosis Assessment Notes Treatment Notes Treatm ent Clinical Notes Jul, Essential hypertension (ICD-10 - I10) PLAN OF TREATMENT Medication Medication Name Sig [...] tablet Orally Once a day for 90 Insurance Providers Payer Name Payer Address Payer Phone Insured Name Patient Relati onship to Insured Coverage Start Date Coverage End Date [address] [facility] [id number] STEPHANI DOMINGUEZ self
--- OUTSIDE RECORDS SUMMARY | 2020-09-17 10:56 | CCD | Summary of Care ---
Author Author [facility] Address Unknown Phone Unavailable Care Team Providers Care Test Deskman Name Role Phone Franc Siddiqui DO PCP Reason for Visit * Reason Comments New Patient abnormal imaging * Consultation (Routine) Referred By Contact Referred To Contact Status Reason Specialty Diagnoses / Procedures Franc Siddiqui DO [address] [place] [address] [facility] Provider-Based [address] [phone] Open Breast Surgery Procedures abn imaging Encounter Details Care Team Description Date Type Department Sarah Maier, KADY [address] [place] [address] Abnormal mammogram (Primary Dx); Breast mass, right 09/09/2020 [facility] Visit [facility] [address] [place] [phone] Allergies No Known Allergiesdocumented as of this encounter (statuses as of 09/09/2020) Medications End Date Status Medication Sig Dispensed [...] as of this encounter (statuses as of 09/09/2020) Active Problems No known active problemsdocumented as of this encounter (statuses as of 09/09/2020) Social History Date Tobacco Use Types Packs/Day Years Used Never Smoker Smokeless Tobacco: Never Used Drinks/Week oz/Week Comments Alcohol Use once a year Yes Social Isolation Answer Date Recorded In a typical week, how many times do you talk on Twice a w barrow 09/09/2020 the phone with family, friends, or neig hbors? How often do you get together with friends or More than th ree times a week 09/09/2020 relatives? How often do you attend jehovah's witness or anabaptist Never 09/09/2020 services? Do you belong to any clubs or organizations such No 09/09/2020 as jehovah's witness groups, unions, fraternal or athletic groups, or [...] Signs Reading Time Taken Comments Vital Sign 158/82 09/09/2020 9:39 AM EST Blood Pressure 82 09/09/2020 9:11 AM EST Pulse 37 C (98.6 F) 09/09/2020 9:11 AM EST Temperature - - Respiratory Rate - - Oxygen Saturation - - Inhaled Oxygen Concentration 99.8 kg (220 lb) 09/09/2020 9:11 AM EST Weight 158.5 cm (5' 2.4") 09/09/2020 9:11 AM EST Height 39.72 09/09/2020 9:11 AM EST Body Mass Index documented in this encounter Progress Notes * Sarah Maier NP - 09/09/2020 9:00 AM EST Aracely Eagle is a 64 y.o. woman [facility] of concern regarding right breast mass. She underwent a screening bilateral mammogram on 05/26/2020. That showed a possib le smooth marginated 3 mm nodular opacity in the mid right breast anteriorly at the 3 o'clock position. It was recommended that she undergo additional imaging. She underwent bilateral ultrasound and diagnostic right breast mammogram. On ma mmogram she had category B breast density and she was noted to have a a low dens ity well circumscribed 4mm nodule noted. On ultrasound at the 2-3:00 location o f the right breast there is a hypoechoic oval shaped nodule measuring 3mm x 4mm about 2cm from the nipple that is felt to correspond to mammogram findings. It i s recommended patient undergo ultrasound guided breast biopsy. She has had no prior breast biopsies. She denies noting any palpable or visual changes in either breast. She denies a ny nipple discharge. PAST MEDICAL HISTORY: Her past medical history is significant for menarche at age 10. She is 3 Para 3 with first live at age 18. She did not breastfeed. She underwent menopause at age 52. She has never taken hormone replacement ther apy. Otherwise, she has a past medical history of Arthritis, Broken wrist, Hypertensi on, and TIA (transient ischemic attack).. She has a past surgical history that includes Arthroplasty Hip Total Replacement (Left, 2017); Hernia repair; Gallbladder surgery (2004); and Appendectomy (1974 ). MEDICATIONS: Prior to Admission medications Medication Sig Start Date End Date Taking? Authorizing Provider Atorvastatin Calcium 10 MG Oral Tablet (LIPITOR) Take by mouth every evening Ind ications: patient does not remember the dose Yes Historical Provider, Gabapentin 100 MG Oral Capsule (NEURONTIN) Take 600 mg by mouth Two Times Daily Indications: p Yes Historical ProviderMD hydroCHLOROthiazide 12.5 MG Oral Capsule (MICROZIDE) Take 20 mg by mouth daily I ndications: High Blood Pressure Disorder Yes Historical Provider, Lisinopril 10 MG Oral Tablet (ZESTRIL) Take 10 mg by mouth daily Yes Historica l ProviderMD Meloxicam 7.5 MG Oral Tablet (MOBIC) Take 7.5 mg by mouth daily Yes Historical Provider, Multiple Vitamins-Minerals (ONE-A-DAY 50 PLUS PO) Take by mouth daily Yes Hist orical Provider, UNKNOWN TO PATIENT Indications: foot cream for arthrist Yes Historical Provide MD sylvia ALLERGIES: No Known Allergies FAMILY HISTORY: There is no family history of breast or ovarian cancer. There is no family history of uterine, colon, prostate, pancreatic or melanoma m alignant disease. SOCIAL HISTORY: She is a non smoker. She denies any alcohol or recreational substance use. REVIEW OF SYSTEMS: She denies fevers, chills, drenching night sweats, unintentional weight loss, un usual bony pain, cough or dyspnea. All other systems reviewed and negative. PHYSICAL EXAMINATION: Physical exam reveals a comfortable woman who appears her stated age and chats f reely. Blood pressure 158/82, pulse 82, temperature 37 C (98.6 F), height 1.585 m (5' 2.4"), weight 99.8 kg (220 lb). Her neck is supple without lymphadenopathy. Breasts are relatively symmetric. Nipples are everted bilaterally. There is no e vident spontaneous nipple discharge. There is no asymmetric skin dimpling or ret raction with arms held in multiple positions. There are no suspicious skin lesi ons. There is no dominant or abnormal masses within either breast. There are no palpable axillary nodes on either side. RADIOGRAPHIC DATA: See HPI. ASSESSMENT AND PLAN: This is a 64 y.o. woman with right breast mass noted screening mammogram and ult rasound. We reviewed previous breast imaging that documented a 3 x 4 mm solid right breas t nodule for which an ultrasound-guided biopsy was recommended. She states unde rstanding and agrees to proceed with procedure that is scheduled for after visit today. She was advised to follow post biopsy instructions given by radiology. Will call her with biopsy results once available. We discussed potential finding of biopsy-benign versus malignancy. We discussed possible treatment scenarios b ased on potential biopsy results. If pathology results are benign, we will plan to follow-up with imaging every 6 months for 2 years to document stability. She was instructed to perform routine [id number]. We reviewed both technique and rationale for this, including the idea of "knowing oneself." We will schedule to bring her back for follow-up pending pathology results. She will call with any problems or questions in the mean time. documented in this encounter Plan of Treatment Health Maintenance Due Date Last Done Comments Hepatitis C Screening (B. 1955 [id number]) MMR Vaccines (1 of 1 - 1956 Standard series) Varicella Vaccines (1 of 1956 2 - 2-dose childhood series) DTaP,Tdap,and Td Vaccines 1960 (1 - Tdap) Colon Cancer Screening 10 12/28/2003 yrs Zoster Vaccines (1 of 2) 12/28/2003 Osteoporosis Screening 2 2018 yr Pneumococcal Vaccine: 65+ 2018 Years (1 of 1 - PPSV23) Influenza Vaccine 05/27/2020 Breast Cancer Screening 2 05/18/2022 05/18/2020 years HIB Vaccines Aged Out No longer eligible [...] 62 Years) documented as of this encounter Results Not on filedocumented in this encounter Visit Diagnoses Diagnosis Abnormal mammogram - Primary Abnormal mammogram, unspecified Breast mass, right Lump or mass in breast documented in this encounter
--- OUTSIDE RECORDS SUMMARY | 2020-09-17 10:56 | CCD ---
Author Author [facility] Organization [facility] Address Unknown Phone Unavailable Care Team Providers Care Tour Bus Driver Name Role Phone Franc Siddiqui Unavailable PROBLEMS Type Condition ICD9-CM Code [id number] Code Onset Dates Condition S tatus SNOMED Code Notes Problem Primary osteoarthritis of left knee M17.12 Acti ve 648475909 Problem Lumbar degenerative disc disease M51.36 Active 26003118 Problem History of TIA (transient ischemic attack) Z86.73 Active 872999727 Problem Primary osteoarthritis of left hip M16.12 Activ e 580503206 Problem Non morbid obesity due to excess calories E66.09 Active 313954112 Problem Essential (primary) hypertension I10 Active 75486367 Problem BMI 37.0-37.9, adult Z68.37 Active 210233242 Problem Status post left hip replacement Z96.642 Active 475055272 Problem Spinal stenosis at L4-L5 level M48.061 Active 1 6366691 Problem Cervical pain (neck) M54.2 Active 83737971 Problem Pain in left knee M25.562 Active 82739555292099 2 Problem Body mass index (BMI) 37.0-37.9, adult Z68.37 A ctive 843748771 Problem 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 Active 822207106 Problem Obesity, unspecified E66.9 Active 857786231 Problem Metatarsalgia of left foot M77.42 Active 56903 5561767201 Problem Mixed hyperlipidemia E78.2 Active 009397102 Problem Pain in right knee M25.561 Active 39504928 Problem Pain in right shoulder M25.511 Active 468743162 70577419 Problem Dyslipidemia E78.5 Active 345883993 Problem Essential hypertension I10 Active 62286942 ALLERGIES No Known Allergies ENCOUNTERS from 1955 to 2020-07-29 Encounter Location Date Provider Diagnosis [facility] [address] [place] [address], Franc Siddiqui IMMUNIZATIONS Vaccine Route Administration [...] Education Language: Question Answer Notes Languages spoken: Cook Islander Jainism: Question Answer Notes Jainism 13 Evangelical Sexual Hx: Question Answer Notes [...] 2000 UNIT 1 tab Orally daily Active Lisinopril 10 MG 1 tablet Orally [...] Information RESULTS No Results REASON FOR VISIT diagnostic mammogram MEDICAL (GENERAL) HISTORY Type Description Date Medical [...] extractions 2003 Surgical History total hip left- [facility] 09/12/16 Surgical History colonoscopy 03/2017 Surgical History basal cell carcinoma removal, right shou lder 2010 Hospitalization History left sided numbness - TIA ([facility]) January 2011 Hospitalization History total hip replacement ([facility]) 09/12/16 Goals Section No Information Health [...] tablet Orally twice daily for 90 day(s) Oc 2017 Hydrochlorothiazide 25MG 1 tablet Orally Once a day for 90 days Shingrix 50 MCG/0.5ML as directed Intramuscular for 2 days 2019 Lisinopril 10 MG 1 tablet Orally Once a day for 90 day(s) Insurance Providers Payer Name Payer Address Payer Phone Insured Name Patient Relati onship to Insured Coverage Start Date Coverage End Date [place] [phone] [place] [address] [address] [facility] [address] [address] self
--- OUTSIDE RECORDS SUMMARY | 2020-09-17 10:56 | CCD ---
Author Author [facility] Organization [facility] Address Unknown Phone Unavailable Care Team Providers Care Senior Commissions Analyst Name Role Phone Franc Siddiqui Unavailable PROBLEMS Type Condition ICD9-CM Code MSV05-NR Code Onset Dates Condition S tatus SNOMED Code Notes Problem Primary osteoarthritis of left hip M16.12 Activ e 827221025 Problem Primary osteoarthritis of left knee M17.12 Acti ve 438827670 Problem Essential (primary) hypertension I10 Active 64813574 Problem History of TIA (transient ischemic attack) Z86.73 Active 238199924 Problem Status post left hip replacement Z96.642 Active 765317531 Problem Non morbid obesity due to excess calories E66.09 Active 348907030 Problem Metatarsalgia of left foot M77.42 Active 16041 8215498454 Problem BMI 37.0-37.9, adult Z68.37 Active 512372316 Problem Cervical pain (neck) M54.2 Active 35931550 Problem Pain in left knee M25.562 Active 64587757896463 2 Problem Pain in right knee M25.561 Active 30996060 Problem Body mass index (BMI) 37.0-37.9, adult Z68.37 A ctive 763971103 Problem Spinal stenosis at L4-L5 level M48.061 Active 1 1449395 Problem Mixed hyperlipidemia E78.2 Active 676741281 Problem Abnormal mammogram R92.8 Active 628049560 Problem 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 [address] [place] [address] Jul, Franc Siddiqui IMMUNIZATIONS Vaccine Route Administration [...] Education Language: Question Answer Notes Languages spoken: American Episcopalian: Question Answer Notes Episcopalian 13 Pentecostal Sexual Hx: Question Answer Notes Had sex [...] Information RESULTS No Results REASON FOR VISIT followup stat referral/ FYI MEDICAL (GENERAL) HISTORY Type Description Date Medical [...] extractions 2003 Surgical History total hip left- [facility] 09/12/16 Surgical History colonoscopy 03/2017 Surgical History basal cell carcinoma removal, right shou lder 2010 Hospitalization History left sided numbness - TIA ([facility]) January 2011 Hospitalization History total hip replacement ([facility]) 09/12/16 Goals Section No Information Health Concerns No Information MEDICAL EQUIPMENT No Information MENTAL STATUS No Information FUNCTIONAL STATUS No Information ASSESSMENTS No Information PLAN OF TREATMENT No Information Insurance Providers Payer Name Payer Address Payer Phone Insured Name Patient Relati onship to Insured Coverage Start Date Coverage End Date [facility] [phone] [facility] [address] [facility] [id number] [address] self
--- OUTSIDE RECORDS SUMMARY | 2020-09-17 10:57 | CCD ---
Author Author [facility] Organization [facility] Address Unknown Phone Unavailable Care Team Providers Care Assembly Inspector Name Role Phone Conrad VARELA Unavailable Unavailable Dee DRAKE DO Unavailable Unavailable DRAKEDee DO Unavailable Unavailable DRAKEDee ZAK DO Unavailable Unavailable DRAKE, Dee ZAK DO Unavailable Unavailable DRAKE, Dee ZAK DO Unavailable Unavailable DRAKEDee ZAK DO Unavailable Unavailable Re-disclosure Warning The records that you are about to access may contain information from federally-assisted alcohol or drug abuse programs. If such information is present, then the following federally mandated warning applies: This information has been disclosed to you from records protected by federal confidentiality rules (42 CFR part 2). The federal rules prohibit you from making any further disclosure of this information unless further disclosure is expressly permitted by the written consent of the person to whom it pertains or as otherwise permitted by 42 CFR part 2. A general authorization for the release of medical or other information is NOT sufficient for this purpose. The Federal rules restrict any use of the information to criminally investigate or prosecute any alcohol or drug abuse patient.The records that you are about to access may contain highly sensitive health information, the redisclosure of which is protected by Article 27-F of the [facility] Public Health law. If you continue you may have access to information: Regarding HIV / AIDS; Provided by facilities licensed or operated by the [facility] Office of Mental Health; or Provided by the [facility] Office for People With Developmental Disabilities. If such information is present, then the following [facility] mandated warning applies: This information has been disclosed to you from confidential records which are protected by state law. State law prohibits you from making any further disclosure of this information without the specific written consent of the person to whom it pertains, or as otherwise permitted by law. Any unauthorized further disclosure in violation of state law may result in a fine or usp sentence or both. A general authorization for the release of medical or other information is NOT sufficient authorization for further disc losure. Family History Family Member Name Family Member Gender Family Member Status Date o f Status Description Data Source(s) Unknown Unknown Problem MEDENT ([facility]) Unknown Male Problem MEDENT ([facility] ) Encounters Encounter Providers Location Date Indications Data Source(s ) Outpatient Attender: SARA VARELAReferrer: SARA VARELA 03/24/2021 12:00:00 AM [facility] Outpatient Referrer: SARA VARELA 03/24/2021 12:00:00 AM [facility] O 09/17/2020 09:16:10 AM EST [facility] ([facility]) Outpatient Admitter: SARA VARELAReferrer: SARA VARELA 09/09/2020 12:00:00 AM EST Unspecified lump in the right breast, unspecified quad [facility] Unspecified lump in the right breast, un specified quadrant Outpatient Attender: SARA VARELAReferrer: ZAK Malik O [id number] 09/09/2020 12:00:00 AM [facility] [place] [address] [address] 09/06/2020 12:00:00 AM EST eCW1 ([facility]) [place] [address] [address] 08/12/2020 12:00:00 AM EST eCW1 ([facility]) [place] [address] [address] 08/12/2020 12:00:00 AM EST eCW1 ([facility]) [place] [address] [address] 08/10/2020 12:00:00 AM EST eCW1 ([facility]) [place] [address] [address] 07/30/2020 12:00:00 AM EST eCW1 ([facility]) [place] [address] [address] 07/27/2020 12:00:00 AM EST eCW1 ([facility]) [place] [address] [address] 07/01/2020 12:00:00 AM EST eCW1 ([facility]) [place] [address] [address] 06/30/2020 12:00:00 AM EST eCW1 ([facility]) Unknown [address] [address] 06/28/2020 12:00:00 AM EST eCW1 ([facility]) [place] [address] [address] 06/07/2020 12:00:00 AM EDT eCW1 ([facility]) [place] [address] [address] 06/07/2020 12:00:00 AM EDT eCW1 ([facility]) [place] [address] [address] 06/03/2020 12:00:00 AM EDT eCW1 ([facility]) [facility] [address] [address] 04/30/2020 12:00:00 AM EDT eCW1 ([facility]) Unknown [address] [address] 03/07/2020 12:00:00 AM EDT eCW1 ([facility]) Unknown [address] [address] 02/13/2020 12:00:00 AM EDT eCW1 ([facility]) Unknown [address] [address] 02/01/2020 12:00:00 AM EDT eCW1 ([facility]) Unknown [address] [facility] [address] 02/01/2020 12:00:00 AM EDT eCW1 ([facility]) Unknown [address] [address] 02/01/2020 12:00:00 AM EDT eCW1 ([facility]) [facility] [address] [address] 01/12/2020 12:00:00 AM EDT eCW1 ([facility]) [facility] [address] [address] 12/11/2019 12:00:00 AM EDT eCW1 ([facility]) [facility] [address] [address] 12/11/2019 12:00:00 AM EDT eCW1 ([facility]) [facility] [address] [address] 12/11/2019 12:00:00 AM EDT eCW1 ([facility]) [facility] [address] [address] 10/30/2019 12:00:00 AM EST eCW1 ([facility]) [facility] [address] [address] 10/28/2019 12:00:00 AM EST [facility]CW[facility] [address] [address] 10/10/2019 12:00:00 AM EST eCW1 ([facility]) [facility] [address] [address] 08/26/2019 12:00:00 AM EST eCW1 ([facility]) [facility] [address] [address] 08/02/2019 12:00:00 AM EST eCW1 ([facility]) [facility] [address] [address] 07/28/2019 12:00:00 AM EST eCW1 ([facility]) Immunizations Vaccine Date Status Description Data Source(s) influenza, recombinant, quadrIvalent,injectable, prese rvative free 06/30/2020 07:24:00 AM EST completed eCW1 ([facility]) influenza, recombinant, quadrIvalent,injectable, prese rvative free 06/30/2020 07:24:00 AM EST completed eCW1 ([facility]) influenza, recombinant, quadrIvalent,injectable, prese rvative free 06/30/2020 07:24:00 AM EST completed eCW1 ([facility]) influenza, recombinant, quadrIvalent,injectable, prese rvative free 06/30/2020 07:24:00 AM EST completed eCW1 ([facility]) influenza, recombinant, quadrIvalent,injectable, prese rvative free 06/30/2020 07:24:00 AM EST completed eCW1 ([facility]) influenza, recombinant, quadrIvalent,injectable, prese rvative free 06/30/2020 07:24:00 AM EST completed eCW1 ([facility]) influenza, recombinant, quadrIvalent,injectable, prese rvative free 06/30/2020 07:24:00 AM EST completed eCW1 ([facility]) influenza, recombinant, quadrIvalent,injectable, prese rvative free 06/30/2020 07:24:00 AM EST completed eCW1 ([facility]) influenza, recombinant, quadrIvalent,injectable, prese rvative free 06/30/2020 07:24:00 AM EST completed eCW1 ([facility]) Pneumococcal conjugate PCV 13 10/30/2019 01:05:00 PM EST completed eCW1 ([facility]) Pneumococcal conjugate PCV 13 10/30/2019 01:05:00 PM EST completed eCW1 ([facility]) Pneumococcal conjugate PCV 13 10/30/2019 01:05:00 PM EST completed eCW1 ([facility]) Pneumococcal conjugate PCV 13 10/30/2019 01:05:00 PM EST completed eCW1 ([facility]) Pneumococcal conjugate PCV 13 10/30/2019 01:05:00 PM EST completed eCW1 ([facility]) Pneumococcal conjugate PCV 13 10/30/2019 01:05:00 PM EST completed eCW1 ([facility]) Pneumococcal conjugate PCV 13 10/30/2019 01:05:00 PM EST completed eCW1 ([facility]) Pneumococcal conjugate PCV 13 10/30/2019 01:05:00 PM EST completed eCW1 ([facility]) Pneumococcal conjugate PCV 13 10/30/2019 01:05:00 PM EST completed eCW1 ([facility]) Pneumococcal conjugate PCV 13 10/30/2019 01:05:00 PM EST completed eCW1 ([facility]) Pneumococcal conjugate PCV 13 10/30/2019 01:05:00 PM EST completed eCW1 ([facility]) Pneumococcal conjugate PCV 13 10/30/2019 01:05:00 PM EST completed eCW1 ([facility]) Pneumococcal conjugate PCV 13 10/30/2019 01:05:00 PM EST completed eCW1 ([facility]) Pneumococcal conjugate PCV 13 10/30/2019 01:05:00 PM EST completed eCW1 ([facility]) Pneumococcal conjugate PCV 13 10/30/2019 01:05:00 PM EST completed eCW1 ([facility]) Pneumococcal conjugate PCV 13 10/30/2019 01:05:00 PM EST completed eCW1 ([facility]) Pneumococcal conjugate PCV 13 10/30/2019 01:05:00 PM EST completed eCW1 ([facility]) Pneumococcal conjugate PCV 13 10/30/2019 01:05:00 PM EST completed eCW1 ([facility]) Tdap 10/30/2019 01:04:00 PM EST completed e CW1 ([facility]) influenza, recombinant, quadrIvalent,injectable, prese rvative free 10/30/2019 01:04:00 PM EST completed eCW1 ([facility]) Tdap 10/30/2019 01:04:00 PM EST completed e CW1 ([facility]) influenza, recombinant, quadrIvalent,injectable, prese rvative free 10/30/2019 01:04:00 PM EST completed eCW1 ([facility]) Tdap 10/30/2019 01:04:00 PM EST completed e CW1 ([facility]) influenza, recombinant, quadrIvalent,injectable, prese rvative free 10/30/2019 01:04:00 PM EST completed eCW1 ([facility]) Tdap 10/30/2019 01:04:00 PM EST completed e CW1 ([facility]) influenza, recombinant, quadrIvalent,injectable, prese rvative free 10/30/2019 01:04:00 PM EST completed eCW1 ([facility]) Tdap 10/30/2019 01:04:00 PM EST completed e CW1 ([facility]) influenza, recombinant, quadrIvalent,injectable, prese rvative free 10/30/2019 01:04:00 PM EST completed eCW1 ([facility]) Tdap 10/30/2019 01:04:00 PM EST completed e CW1 ([facility]) influenza, recombinant, quadrIvalent,injectable, prese rvative free 10/30/2019 01:04:00 PM EST completed eCW1 ([facility]) Tdap 10/30/2019 01:04:00 PM EST completed e CW1 ([facility]) influenza, recombinant, quadrIvalent,injectable, prese rvative free 10/30/2019 01:04:00 PM EST completed eCW1 ([facility]) Tdap 10/30/2019 01:04:00 PM EST completed e CW1 ([facility]) influenza, recombinant, quadrIvalent,injectable, prese rvative free 10/30/2019 01:04:00 PM EST completed eCW1 ([facility]) Tdap 10/30/2019 01:04:00 PM EST completed e CW1 ([facility]) influenza, recombinant, quadrIvalent,injectable, prese rvative free 10/30/2019 01:04:00 PM EST completed eCW1 ([facility]) Tdap 10/30/2019 01:04:00 PM EST completed e CW1 ([facility]) influenza, recombinant, quadrIvalent,injectable, prese rvative free 10/30/2019 01:04:00 PM EST completed eCW1 ([facility]) Tdap 10/30/2019 01:04:00 PM EST completed e CW1 ([facility]) influenza, recombinant, quadrIvalent,injectable, prese rvative free 10/30/2019 01:04:00 PM EST completed eCW1 ([facility]) Tdap 10/30/2019 01:04:00 PM EST completed e CW1 ([facility]) influenza, recombinant, quadrIvalent,injectable, prese rvative free 10/30/2019 01:04:00 PM EST completed eCW1 ([facility]) Tdap 10/30/2019 01:04:00 PM EST completed e CW1 ([facility]) influenza, recombinant, quadrIvalent,injectable, prese rvative free 10/30/2019 01:04:00 PM EST completed eCW1 ([facility]) Tdap 10/30/2019 01:04:00 PM EST completed e CW1 ([facility]) influenza, recombinant, quadrIvalent,injectable, prese rvative free 10/30/2019 01:04:00 PM EST completed eCW1 ([facility]) Tdap 10/30/2019 01:04:00 PM EST completed e CW1 ([facility]) influenza, recombinant, quadrIvalent,injectable, prese rvative free 10/30/2019 01:04:00 PM EST completed eCW1 ([facility]) Tdap 10/30/2019 01:04:00 PM EST completed e CW1 ([facility]) influenza, recombinant, quadrIvalent,injectable, prese rvative free 10/30/2019 01:04:00 PM EST completed eCW1 ([facility]) Tdap 10/30/2019 01:04:00 PM EST completed e CW1 ([facility]) influenza, recombinant, quadrIvalent,injectable, prese rvative free 10/30/2019 01:04:00 PM EST completed eCW1 ([facility]) Tdap 10/30/2019 01:04:00 PM EST completed e CW1 ([facility]) influenza, recombinant, quadrIvalent,injectable, prese rvative free 10/30/2019 01:04:00 PM EST completed eCW1 ([facility]) Medications Medication Brand Name Start Date Product Form Dose Route Admi nistrative Instructions Pharmacy Instructions Status Indications Reaction Description Data Source(s) Shingrix 50 MCG/0.5ML Shingrix 50 MCG/0.5ML 10/30/2019 12:00:00 AM EST active Shingrix 50 MCG/0.5ML eCW1 ( [facility]) Shingrix 50 MCG/0.5ML Shingrix 50 MCG/0.5ML 10/30/2019 12:00:00 AM EST active Shingrix 50 MCG/0.5ML eCW1 ( [facility]) Shingrix 50 MCG/0.5ML Shingrix 50 MCG/0.5ML 10/30/2019 12:00:00 AM EST suspended Shingrix 50 MCG/0.5ML eCW1 ( [facility]) Shingrix 50 MCG/0.5ML Shingrix 50 MCG/0.5ML 10/30/2019 12:00:00 AM EST active Shingrix 50 MCG/0.5ML eCW1 ( [facility]) Shingrix 50 MCG/0.5ML Shingrix 50 MCG/0.5ML 10/30/2019 12:00:00 AM EST active Shingrix 50 MCG/0.5ML eCW1 ( [facility]) Shingrix 50 MCG/0.5ML Shingrix 50 MCG/0.5ML 10/30/2019 12:00:00 AM EST suspended Shingrix 50 MCG/0.5ML eCW1 ( [facility]) Shingrix 50 MCG/0.5ML Shingrix 50 MCG/0.5ML 10/30/2019 12:00:00 AM EST suspended Shingrix 50 MCG/0.5ML eCW1 ( [facility]) Shingrix 50 MCG/0.5ML Shingrix 50 MCG/0.5ML 10/30/2019 12:00:00 AM EST active Shingrix 50 MCG/0.5ML eCW1 ( [facility]) Shingrix 50 MCG/0.5ML Shingrix 50 MCG/0.5ML 10/30/2019 12:00:00 AM EST active Shingrix 50 MCG/0.5ML eCW1 ( [facility]) Shingrix 50 MCG/0.5ML Shingrix 50 MCG/0.5ML 10/30/2019 12:00:00 AM EST active Shingrix 50 MCG/0.5ML eCW1 ( [facility]) Shingrix 50 MCG/0.5ML Shingrix 50 MCG/0.5ML 10/30/2019 12:00:00 AM EST active Shingrix 50 MCG/0.5ML eCW1 ( [facility]) Shingrix 50 MCG/0.5ML Shingrix 50 MCG/0.5ML 10/30/2019 12:00:00 AM EST active Shingrix 50 MCG/0.5ML eCW1 ( [facility]) Shingrix 50 MCG/0.5ML Shingrix 50 MCG/0.5ML 10/30/2019 12:00:00 AM EST active Shingrix 50 MCG/0.5ML eCW1 ( [facility]) Shingrix 50 MCG/0.5ML Shingrix 50 MCG/0.5ML 10/30/2019 12:00:00 AM EST active Shingrix 50 MCG/0.5ML eCW1 ( [facility]) Shingrix 50 MCG/0.5ML Shingrix 50 MCG/0.5ML 10/30/2019 12:00:00 AM EST active as directed eCW1 ([facility]) Shingrix 50 MCG/0.5ML Shingrix 50 MCG/0.5ML 10/30/2019 12:00:00 AM EST active Shingrix 50 MCG/0.5ML eCW1 ( [facility]) Shingrix 50 MCG/0.5ML Shingrix 50 MCG/0.5ML 10/30/2019 12:00:00 AM EST active Shingrix 50 MCG/0.5ML eCW1 ( [facility]) Shingrix 50 MCG/0.5ML Shingrix 50 MCG/0.5ML 10/30/2019 12:00:00 AM EST active Shingrix 50 MCG/0.5ML eCW1 ( [facility]) Insurance Providers Payer name Policy type / Coverage type Policy ID Covered libertarian ID Covered libertarian's relationship to seht Policy Seth Plan Information [place] [id number] SP [id number] [employer] [place] Blue Cross/B lue Shield [id number] Self [id number] [place] [id number] Self [id number] BCBS GENERIC C [id number] Self WM [id number] [place] [id number] SP [id number] [employer] BCBS B [id number] S W [id number] [employer] BCBS B [id number] S W [id number] [place] [id number] SP [id number] [employer]CE[employer] BCBS B [id number] [facility] [id number] [facility] B [id number] S W [id number] ANSI-Commercial [id number] ANSI-Commercial [id number] ANSI-Commercial [id number] ANSI-Commercial [id number] ANSI-Commercial [id number] ANSI-Commercial [id number] ANSI-Commercial [id number] ANSI-Commercial [id number] ANSI-Commercial [id number] ANSI-Commercial [id number] ANSI-Commercial [id number] ANSI-Commercial [id number] ANSI-Commercial [id number] [facility] Health Maintenance Organization (HMO) [id number] Self [id number] [facility] 020/520 [id number] SP [id number] ANSI-Commercial [id number] ANSI-Commercial [id number] ANSI-Commercial [id number] ANSI-Commercial [id number] ANSI-Commercial [id number] ANSI-Commercial [id number] ANSI-Commercial [id number] ANSI-Commercial [id number] ANSI-Commercial [id number] [place] [id number] SP [id number] ANSI-Commercial [id number] [employer] BCBS Health Maintenance Organization (HMO) [id number] Self [id number] ANSI-Commercial [id number] ANSI-Commercial [id number] ANSI-Commercial [id number] ANSI-Commercial [id number] [place] [id number] SP [id number] [place] [id number] SP [id number] [employer]BS Health Maintenance Organization (HMO) [id number] Self [id number] [place] CMS (WC) Workers Compensation [id number] Self [id number] BS [place] Commercial [id number] Self [id number] [place] PPO 302/307 [id number] SP [id number] [place]) Workers Compensation [id number] Self [id number] [place] CMS ([place]) Workers Compensation Self BS [place] Commercial Self [employer] BCBS B [id number] S W [id number] KRISTIN [id number] SP [id number] SELF PAY UNAVAILABLE SP UNAVAILA BLE [facility] LINEN [id number] SP [id number] MEDICAID [id number] SP [id number] MEDICAID [id number] SP [id number] Problems, Conditions, and Diagnoses Code Display Name Description Problem Type Effective Dates Data Source(s) R92.8 [id number] Abnormal mammogram Problem 08/12/2020 12:00: 00 AM EST eCW1 ([facility]) E78.5 [id number] Dyslipidemia Problem 07/29/2019 12:00:00 AM EST eCW1 ([facility]) E78.5 [id number] Dyslipidemia Problem 07/29/2019 12:00:00 AM EST eCW1 ([facility]) I10 [id number] Essential hypertension Problem 07/28/2019 12 :00:00 AM EST eCW1 ([facility]) E66.9 [id number] Obesity, unspecified Problem 07/28/2019 12:0 0:00 AM EST eCW1 ([facility]) Z68.37 [id number] Body mass index (BMI) 37.0-37.9, adult Pr oblem 07/28/2019 12:00:00 AM EST eCW1 ([facility]) E66.9 [id number] Obesity, unspecified Problem 07/28/2019 12:0 0:00 AM EST eCW1 ([facility]) N63.10 Unspecified lump in the right breast, un specified quadrant Unspecified lump in the right breast, unspecified quadrant Diagnosis 021 09:30:00 AM [facility] Surgeries/Procedures Procedure Description Date Indications Data Source(s) Immunization: Flublok Quadrivalent (18 years & older) 0.5mL IM (Influenza) 06/30/2020 12:00:00 AM EST eCW1 ([facility]) TDAP 0.5mL (Boostrix) 10/30/2019 12:00:00 AM EST eCW1 ([facility]) Pneumococcal 0.5mL (Prevnar 13) 10/30/2019 12:00:00 AM EST eCW1 ([facility]) RIV4 VACC RECOMBINANT DNA IM 10/30/2019 12:00:00 AM ES T eCW1 ([facility]) IMMUNIZATION ADMIN 10/30/2019 12:00:00 AM EST eCW1 ([facility]) IMMUNIZATION ADMIN EACH ADD 10/30/2019 12:00:00 AM EST eCW1 ([facility]) Results ID Date Data Source [id number] 09/14/2020 03:47:31 PM [facility] US BREAST BIOPSY PROCEDURE ULTRASOUND IDED [id number] RESULTInterpreted by:Quique Benítez MDULTRASOUND-GUIDED INCISIONAL VACUUM ASSISTED BIOPSY, right breast.HISTORY: Mass in the right breast at 2:00COMPARISON: Outside breast ultrasound 08/09/2020Technique and findings:The risks and benefits of the procedure were explained to the patient, and a consent form was signed. The patient was positioned on the ultrasound table and the right breast was prepped with Betadine swabs and draped with sterile towels. The skin and deeper tissues were anesthetized using buffered lidocaine.A skin incision was made with a scalpel and a # 11 blade. The biopsy probe was inserted through the incision to the level of the lesion at 2 o'clock; the vacuum assisted device was activated and 4 samples were obtained while the site was lavaged with saline and buffered lidocaine.A "stoplight" shaped biopsy clip marker was left at the site of biopsy.The tissue specimens were placed into 10% formalin and sent to path ology.Post biopsy mammogram revealed the clip to be in good position. Pressure was held over the biopsy site using sterile 4 x 4 gauze until bleeding subsided. A Steri strip was placed across the skin tiffany and a gauze pressure dressing and ice pack were placed over the biopsy site. The patient was given after care instructions and left the breast center in good condition.IMPRESSION:Ultrasound guided biopsy completed.Pathology results:BREAST, RIGHT, 2:00, NEEDLE BIOPSY: PREDOMINANTLY FATTY BREAST TISSUE WITH PATCHY FIBROSIS AND FIBROADENOMATOID CHANGE.The pathology results are concordant with the imaging findings.This document has been electronically signed by Quique Benítez MD on 09/14/2020 3:45 PM Name Value Range Interpretation Code Description Data Jyoti rce(s) Supporting Document(s) ID Date Data Source [id number] 09/09/2020 10:21:36 AM [facility] Name Value Range Interpretation Code Description Data [facility] rce(s) Supporting Document(s) Progress Note [facility] EPCYYd0zEdGOXyAb04/MEGdpUVTsd1XgJEhuLMe4RRciXYOvU4WoCDZ7fR1aPMZ7PUbNAyRmMgNdDGK7 lbm XqFxnAJmQoNTXcEccRDkSxOWdtKxhqrVDiOW9BmNK2HHFoG18zGWPyUCPnJ0OqJNA3Wfn+Yk4LKOAprH NkSB7FJfsW1C1wt5e1Bn8agA3XuPZoZupqjGa3ZHindT8+8+qvaUMR2e+yV/Kr4GxxoVAc//rqubszJ/ 1taunDlGlZyBOVpdPbsMfdJlco94/Fne5lrkAL/1Z/ +qESNzPx+9+U7FEhaRdf/2SDyAPKCiy/Santosh/05a/kbV5PRv/e8QEHMr+5u19RjPe7Ua0GFSsh5zN6t7K [file] ICAgICAgICAgICAgICAgICAgICAgICAgICAgICAgICAgICAgICAgICAgICAgICAgICAgICAgICAgICAg ICAgICAgICAgICAgICAgICAgICAgICAgICAgICAgIC AgICAgDQogICAgICAgICAgICAgICAgICAgICAgICAgICAgICAgICAgICAgICAgICAgICAgICAgICAgIC AgICAgICAgICAgICAgICAgICAgICAgICAgICAgICAgICAgICAgICAgICAgICAgDQogICAgICAgICAgIC AgICAgICAgICAgICAgICAgICAgICAgICAgICAgICAg ICAgICAgICAgICAgICAgICAgICAgICAgICAgICAgICAgICAgICAgICAgICAgICAgICAgICAgICAgDQog ICAgICAgICAgICAgICAgICAgICAgICAgICAgICAgICAgICAgICAgICAgICAgICAgICAgICAgICAgICAg ICAgICAgICAgICAgICAgICAgICAgICAgICAgICAgIC AgICAgICAgDQogICAgICAgICAgICAgICAgICAgICAgICAgICAgICAgICAgICAgICAgICAgICAgICAgIC AgICAgICAgICAgICAgICAgICAgICAgICAgICAgICAgICAgICAgICAgICAgICAgICAgDQogICAgICAgIC AgICAgICAgICAgICAgICAgICAgICAgICAgICAgICAg ICAgICAgICAgICAgICAgICAgICAgICAgICAgICAgICAgICAgICAgICAgICAgICAgICAgICAgICAgICAg DQogICAgICAgICAgICAgICAgICAgICAgICAgICAgICAgICAgICAgICAgICAgICAgICAgICAgICAgICAg ICAgICAgICAgICAgICAgICAgICAgICAgICAgICAgIC AgICAgICAgICAgDQogICAgICAgICAgICAgICAgICAgICAgICAgICAgICAgICAgICAgICAgICAgICAgIC AgICAgICAgICAgICAgICAgICAgICAgICAgICAgICAgICAgICAgICAgICAgICAgICAgICAgDQogICAgIC AgICAgICAgICAgICAgICAgICAgICAgICAgICAgICAg ICAgICAgICAgICAgICAgICAgICAgICAgICAgICAgICAgICAgICAgICAgICAgICAgICAgICAgICAgICAg ICAgDQogICAgICAgICAgICAgICAgICAgICAgICAgICAgICAgICAgICAgICAgICAgICAgICAgICAgICAg ICAgICAgICAgICAgICAgICAgICAgICAgICAgICAgIC UnBVExVBDzLEPxQIWmZMp2J1cwAHElWLTdWP4hLMd3He4+FKuVRyZsGPL1gpHuvF8UBA0no8HtWTjlLF Ppv5PfJZu3XD5BOABpCXzxNA3SQWgixi0MRIMjDPJqnDUBp5ugPqZpIDP3TCFuDqbhOD7SHANcQ8ncei GjOVOsKXVSEJdtHLDBKMqqGIQMBK1ETkMsY9TqnJ50 IDMNCj4+EUapdtAjMlpSByMjNMIse9AhKEm4OH6NRTMqMdybj7ViCmFgFNBXYFaiMC9RGWO4GXD7DCAm Gw9XQLCrD088yoCaWL9WVp1AXgAzPY2ntu8SYmZhOOLtRgxQGhd3IUojSB4ZuQBjVNrKif2alhOvveTR r4LplpQzgLMDyvgriIqsHFuyZzIbt7OuIEWVCSGqyL TrXhN3PbRcDzDuHEf2AFCcJJ8eEOqwTD4VKQM8BQezOZDzKUSrU8uQCuZrHDFaNoNmwKqyUG5HKjUbF5 BhcmVudCAyMyAwIFINCj4+CDukzmRlZzjHUwN1HDYej4KyLUr5OV9ZRNFoZVlcKY7MYBGjeI6zBJqhVV 3EDcRpPFUqWGMMOlIlC47qzHAnPDk6M6UaYjWbXIAy RmlsZXMgPDwvTmFtZXMgWyBdDQogID4+ID4+MQktYS6YRQxlxrKiGACyCh1UEIZnFLEsXI3iTYKqRUIo J7K3fZbkVKKCDoTxC3bgpwdnRA3qLPBgY987lNuupxDgITMkJEPfWe9NOMVqJGU5LMXhuSJnJvZcRMMS CRkxRL7LsTFsHND3sB4jZGwsIRXzPRWyM9kCLnWpeU idAH60bQfsnwNvhQQeECb+Ag3IZY9bz3JqQSw5nyUhCClxRCC4XCjzPTDbQWOaFRNkZNK0NGL2KKNJCb GcCRGtIWDpURluIXNcMIGvaa7PLXRiQACsIaa3ZqAmVOPvBWNaZVftTBTxQWK6KfDvJTRlYALuYX2OLb TwCHViBPXqJIqdROJeIFOxfb7DZEKaMJPeLNBzZTOy MABoXNIzJQrmCCCpORY2BrG1EOExMTAnDO5VQnWlNHRiDZkzFcCpEZFrVSFyjp6RYDUbGWIgBaAuTAEr JFYhQPBmGBevXHHrKXS4AiNgJZFbTJVfQT3PGkYfTVOvHGq4PsKqKATqCPFclo3VVIQoDKLjAUqnYUKk WBVkRTVkHTqfPMZrHVYpZBUqSXCrMWYtQX8CWmFzTS JfTZUgEKOqYJZfNXIpfl2DWXBeBTWyVCI1VAYyZLHiQWUtCXxkOHUgMRGoGNW4WWStBYIqAD6BOtTjDQ IwZST7BUFiZPSzRTNygu5RBPOhEVZtBdVpKHRgDBTcHHOcHXkkBRTpHSShPhP6GIVcOYJfMA7BJnZnOX VaDdF2KuJmMZLoEKMlhe7RAOXwNTGdYfa3BDZoDNIu EJReRQhbJHZwFMCmJFYkJVLfOTVeYW9JYiObNPLqEbMyWgXzNPLvBOJxkw3AIIXiNQFpOKi2ZSPfEUNn ODYqTZcsVKQpFMS8ZAJpWSSiSGDcYU9BZxHtSGXhInI3MBDtYMZsAPHvws3BpJLanWbbid8YYMqVOc7Q hYqeIGT6LVznPq5tnDYzIELcBVGSWb4SjzWbZKRuRA JPJZewOESaLWTeJtDwOEK2Tvy8Cxl6YXCpVMKiJuL1ABBlUMT7YkZrNoR9ZKN8DpU7QNOvWRBbDsM0Tc CdZOUtNOgrTjN2YmB1WGL+EX4dJAr+Pp5Wk4TxxzG0mgUqYGldSgCePl8LLAKRQ9RMNk== ID Date Data Source [id number] 09/13/2020 10:30:00 AM [facility] Surgical Pathology ReportName: ARACELY DOMINGUEZMRN: [id number] Number: [id number] Date: 09/09/2020 00:00Received Date: 09/09/2020 15:56Physician(s): SARA VARELA,[employer]ILL WORK[employer] SARA VARELA,NPCopy To:QUIQUE BENÍTEZ,ZEINABpecimen(s) ReceivedA: Right breast 2:00Clinical HistoryMass in the right breast at 2 o'clock. Fat necrosis vs. cyst. Excludecancer. DiagnosisBREAST, RIGHT, 2:00, NEEDLE BIOPSY: PREDOMINANTLY FATTY BREAST TISSUEWITH PATCHY FIBROSIS AND FIBROADENOMATOID CHANGE./Tosin Hough M.D.;Resident PathologistElectronically Signed By Micky Matthews MD;, Attending Patholog is09/13/2020 10:30:27 The attending pathologist named above attests that he/she has personallyreviewed the relevant preparation(s) for the specimen, performedmicroscopic examination when indicated, and rendered the final diagnosis.Unless 'gross-only' is specified, the final diagnosis is based on amicroscopic examination of industrial sales representative sections of tissue.Gross DescriptionThe specimen is received in formalin labeled with the patient's name"Aracely Dominguez" and "right breast 2 o'clock". It consists of multiplecylindrical fragments of lechuga-yellow fibrofatty tissue ranging from 0.4 upto 1.5 cm in length and averaging 0.3 cm in diameter. Totally submittedin one cassette.ND/pmwThis report may include one or more immunohistochemical stain results thatuse analyte specific reagents. All positive and negative controls havebeen reviewed by the attending pathologist and are satisfactory. The testswere developed and their performance characteristics determined by [facility] Pathology department. They have not been cleared or approved by the USFood and Drug Administration. The FDA has determined that such clearanceor approval is not necessary. Name Value Range Interpretation Code Description Data Jyoti rce(s) Supporting Document(s) ID Date Data Source TSH 07/31/2019 12:00:00 AM EST eCW1 ([facility]) Name Value Range Interpretation Code Description Data Jyoti rce(s) Supporting Document(s) 1.370 0.358-3.740 THYROID STIMULATING HORM ONE eCW1 ([facility]) ID Date Data Source [id number] 07/31/2019 12:00:00 AM EST eCW1 ([facility]) Name Value Range Interpretation Code Description Data Jyoti rce(s) Supporting Document(s) Hemoglobin A1c/Hemoglobin.total in Blood 6.0 HEMOGLOBIN A1c eCW1 ([facility]) ID Date Data Source Comprehensive Metabolic Profile (CMP) 07/31/2019 12:00:00 AM EST eCW1 ([facility]) Name Value Range Interpretation Code Description Data Jyoti rce(s) Supporting Document(s) 0.72 0.55-1.30 CREATININE FOR GFR eCW1 ([facility]) 89 70-100 GLUCOSE, FASTING eCW1 ([facility]) > 60.0 >45 GLOMERULAR FILTRATION RATE eCW 1 ([facility]) 30 7-18 BLOOD UREA NITROGEN eCW1 ([facility]) 27 21-32 CARBON DIOXIDE LEVEL eCW1 ([facility]) 143 136-145 SODIUM LEVEL eCW1 ([facility]) 3.5 3.5-5.1 POTASSIUM SERUM eCW1 ([facility]) 108 98-107 CHLORIDE LEVEL eCW1 ([facility]) 25 12-78 ALT/SGPT eCW1 ([facility]) 80 45-117 ALKALINE PHOSPHATASE eCW1 ([facility]) 20 7-37 AST/SGOT eCW1 ([facility]) 9.0 8.8-10.2 CALCIUM LEVEL eCW1 ([facility]) 1.5 0.2-1.0 BILIRUBIN,TOTAL eCW1 ([facility]) 3.6 3.2-5.2 ALBUMIN eCW1 ([facility]) 6.7 6.4-8.2 TOTAL PROTEIN eCW1 ([facility]) 1.16 1.00-1.93 ALBUMIN/GLOBULIN RATIO eCW1 ([facility]) Procedure Social History Code Duration Value Status Description Data Source(s ) Alcohol intake 09/09/2020 12:00:00 AM EST Current drinker of al cohol (finding) completed Current drinker of alcohol (finding) [facility] Tobacco use and exposure 09/09/2020 12:00:00 AM EST Never used co mpleted Never used [facility] Smoking 09/09/2020 12:00:00 AM EST Never smoker completed Never s [facility] Smoking 08/12/2020 12:00:00 AM EST Never Smoker completed Never S moker eCW1 ([facility]) Smoking 08/12/2020 12:00:00 AM EST Never Smoker completed Never S moker eCW1 ([facility]) Smoking 08/12/2020 12:00:00 AM EST Never Smoker completed Never S moker eCW1 ([facility]) Smoking 10/30/2019 12:00:00 AM EST Never Smoker completed Never S moker eCW1 ([facility]) Smoking 10/30/2019 12:00:00 AM EST Never Smoker completed Never S moker eCW1 ([facility]) Smoking 10/30/2019 12:00:00 AM EST Never Smoker completed Never S moker eCW1 ([facility]) Smoking 10/30/2019 12:00:00 AM EST Never Smoker completed Never S moker eCW1 ([facility]) Smoking 10/30/2019 12:00:00 AM EST Never Smoker completed Never S moker eCW1 ([facility]) Smoking 10/30/2019 12:00:00 AM EST Never Smoker completed Never S moker eCW1 ([facility]) Smoking 10/30/2019 12:00:00 AM EST Never Smoker completed Never S moker eCW1 ([facility]) Smoking 10/30/2019 12:00:00 AM EST Never Smoker completed Never S moker eCW1 ([facility]) Smoking 10/30/2019 12:00:00 AM EST Never Smoker completed Never S moker eCW1 ([facility]) Smoking 10/30/2019 12:00:00 AM EST Never Smoker completed Never S moker eCW1 ([facility]) Smoking 10/30/2019 12:00:00 AM EST Never Smoker completed Never S moker eCW1 ([facility]) Smoking 10/30/2019 12:00:00 AM EST Never Smoker completed Never S moker eCW1 ([facility]) Smoking 10/30/2019 12:00:00 AM EST Never Smoker completed Never S moker eCW1 ([facility]) Smoking 10/30/2019 12:00:00 AM EST Never Smoker completed Never S moker eCW1 ([facility]) Vital Signs ID Date Data Source UNK Name Value Range Interpretation Code Description Data Source(s) Diastolic blood pressure 75 mm[Hg] 75 mm[Hg] eCW1 ([facility]) Systolic blood pressure 119 mm[Hg] 119 mm[Hg] e CW1 ([facility]) Body temperature 97.5 [degF] 97.5 [degF] eCW1 ( [facility]) Respiratory rate 16 /min 16 /min eCW1 ([facility]) Heart rate 73 /min 73 /min eCW1 ([facility]) Body mass index (BMI) [Ratio] 40.97 kg/m2 40.97 kg/m2 W1 ([facility]) Body height 62 [in_i] 62 [in_i] eCW1 ([facility]) Body weight 224 [lb_av] 224 [lb_av] eCW1 ([facility]) Diastolic blood pressure 69 mm[Hg] 69 mm[Hg] eCW1 ([facility]) Systolic blood pressure 137 mm[Hg] 137 mm[Hg] e CW1 ([facility]) Body temperature 97.1 [degF] 97.1 [degF] eCW1 ( [facility]) Respiratory rate 17 /min 17 /min eCW1 ([facility]) Heart rate 64 /min 64 /min eCW1 ([facility]) Body mass index (BMI) [Ratio] 36.36 kg/m2 36.36 kg/m2 eCW1 ([facility]) Body height 62 [in_us] 62 [in_us] eCW1 ([facility]) Body weight Measured 198.8 [lb_av] 198.8 [lb_av ] eCW1 ([facility]) Diastolic blood pressure 83 mm[Hg] 83 mm[Hg] eCW1 ([facility]) Systolic blood pressure 165 mm[Hg] 165 mm[Hg] e CW1 ([facility]) Body temperature 96.6 [degF] 96.6 [degF] eCW1 ( [facility]) Respiratory rate 17 /min 17 /min eCW1 ([facility]) Heart rate 79 /min 79 /min eCW1 ([facility]) Body mass index (BMI) [Ratio] 37.34 kg/m2 37.34 kg/m2 eCW1 ([facility]) Body height 62 [in_us] 62 [in_us] eCW1 ([facility]) Body weight Measured 204.2 [lb_av] 204.2 [lb_av ] eCW1 ([facility]) ID Date Data Source [id number] 09/14/2020 03:47:31 PM [facility] Name Value Range Interpretation Code Description Data Source(s) WEIGHT RECORDED 220 lb 220 lb [facility] Body height Measured 62 in 62 in [facility] ID Date Data Source [id number] 09/09/2020 10:21:36 AM [facility] Name Value Range Interpretation Code Description Data Source(s) WEIGHT RECORDED 220 lb 220 lb [facility] Body height Measured 62.4 in 62.4 in [facility] Patient Treatment Plan of Care Planned Activity Planned Date Details Description Data Source (s) Shingrix 50 MCG/0.5ML 10/30/2019 12:00:00 AM EST eCW1 ([facility]) Shingrix 50 MCG/0.5ML 10/30/2019 12:00:00 AM EST eCW1 ([facility]) Shingrix 50 MCG/0.5ML 10/30/2019 12:00:00 AM EST eCW1 ([facility]) Shingrix 50 MCG/0.5ML 10/30/2019 12:00:00 AM EST eCW1 ([facility]) Shingrix 50 MCG/0.5ML 10/30/2019 12:00:00 AM EST eCW1 ([facility]) Shingrix 50 MCG/0.5ML 10/30/2019 12:00:00 AM EST eCW1 ([facility]) Shingrix 50 MCG/0.5ML 10/30/2019 12:00:00 AM EST eCW1 ([facility]) Shingrix 50 MCG/0.5ML 10/30/2019 12:00:00 AM EST eCW1 ([facility]) Shingrix 50 MCG/0.5ML 10/30/2019 12:00:00 AM EST eCW1 ([facility]) Shingrix 50 MCG/0.5ML 10/30/2019 12:00:00 AM EST eCW1 ([facility]) Shingrix 50 MCG/0.5ML 10/30/2019 12:00:00 AM EST eCW1 ([facility]) Shingrix 50 MCG/0.5ML 10/30/2019 12:00:00 AM EST eCW1 ([facility]) Shingrix 50 MCG/0.5ML 10/30/2019 12:00:00 AM EST eCW1 ([facility]) Shingrix 50 MCG/0.5ML 10/30/2019 12:00:00 AM EST eCW1 ([facility]) Shingrix 50 MCG/0.5ML 10/30/2019 12:00:00 AM EST eCW1 ([facility])
[2020-09-17 11:29] LABS: BASO % 0.4 % (0.0-1.0); EOS # 0.1 10^3/uL (0.0-0.5); EOS % 2.2 % (0.0-3.0); HEMATOCRIT 37.2 % (36.0-47.0); HEMOGLOBIN 11.9 g/dl (12.0-15.5); LYMPH # 1.6 10^3/uL (1.5-5.0); LYMPH % 28.9 % (24.0-44.0); MEAN CORPUSCULAR HEMOGLOBIN 29.7 pg (27.0-33.0); MEAN CORPUSCULAR VOLUME 92.8 fl (80.0-96.0); MONO # 0.4 10^3/uL (0.0-0.8); MONO % 7.9 % (0.0-5.0); NEUTROPHILS # 3.3 10^3/uL (1.5-8.5); NEUTROPHILS % 60.2 % (36.0-66.0); PLATELET COUNT, AUTOMATED 279 10^3/uL (150-450); RED BLOOD COUNT 4.01 10^6/uL (4.00-5.40); WHITE BLOOD COUNT 5.5 10^3/uL (4.0-10.0)
--- NOTE | 2020-09-17 11:37 | REP ---
INDICATION: R/O DVT COMPARISON: None. TECHNIQUE: Real time compression and duplex Doppler interrogation of the right lower extremity deep venous system is performed. FINDINGS: The right common femoral, superficial femoral and popliteal veins are fully compressible with transducer pressure and demonstrate normal spontaneous and phasic flow, without evidence of deep venous thrombosis. IMPRESSION: No evidence of deep venous thrombosis of the right lower extremity femoral popliteal venous system. <Electronically signed by Jeffrey Sommers > 09/17/20 0103
[2020-09-17 11:38] LABS: INR 0.95; PROTHROMBIN TIME 12.9 SECONDS (12.5-14.3)
[2020-09-17 11:39] LABS: PARTIAL THROMBOPLASTIN TIME 29.9 SECONDS (24.2-38.5)
[2020-09-17 11:52] LABS: ALT/SGPT 41 U/L (12-78); BILIRUBIN,DIRECT 0.3 MG/DL (0.0-0.2); BILIRUBIN,TOTAL 1.5 MG/DL (0.2-1.0); BLOOD UREA NITROGEN 28 MG/DL (7-18); C REACTIVE PROTEIN QUANTITATIV 0.81 MG/DL (0.00-0.30); CALCIUM LEVEL 9.5 MG/DL (8.8-10.2); CARBON DIOXIDE LEVEL 30 MEQ/L (21-32); CHLORIDE LEVEL 106 MEQ/L (98-107); CREATININE FOR GFR 0.71 MG/DL (0.55-1.30); GLOMERULAR FILTRATION RATE > 60.0 (>45); GLUCOSE, FASTING 77 MG/DL (70-100); POTASSIUM SERUM 3.5 MEQ/L (3.5-5.1); SODIUM LEVEL 141 MEQ/L (136-145); TOTAL PROTEIN 7.3 GM/DL (6.4-8.2)
[2020-09-17 12:01] LABS: ERYTHROCYTE SEDIMENTATION RATE 28 mm/hr (0-30)
[2020-09-17 12:22] LABS: D-DIMER QUANT < 270 ng/ml (<500)
[2020-09-17 12:58] VITALS: BP 152/90
== END 2020-09-17 13:00 | disposition home or self-care (01) ==
LOC: M ED 10:46
DX: M79.661 Pain in right lower leg (principal); R60.9 Edema, unspecified; M17.11 Unilateral primary osteoarthritis, right knee; I25.10 Atherosclerotic heart disease of native coronary artery without angina pectoris; I10 Essential (primary) hypertension; G89.29 Other chronic pain; M54.9 Dorsalgia, unspecified; E78.5 Hyperlipidemia, unspecified; Z86.73 Personal history of transient ischemic attack (TIA), and cerebral infarction without residual deficits; Z79.82 Long term (current) use of aspirin; Z79.899 Other long term (current) drug therapy

== ENCOUNTER → 2020-12-02 | Outpatient (REF) | payer BC ==
[2020-12-02 12:03] LABS: HEMOGLOBIN A1c 5.9 %
[2020-12-02 12:15] LABS: BLOOD UREA NITROGEN 32 MG/DL (7-18); CALCIUM LEVEL 9.3 MG/DL (8.8-10.2); CARBON DIOXIDE LEVEL 31 MEQ/L (21-32); CHLORIDE LEVEL 104 MEQ/L (98-107); CHOLESTEROL LEVEL 119 MG/DL (<200); CHOLESTEROL RISK RATIO 2.428 (<5); CREATININE FOR GFR 0.75 MG/DL (0.55-1.30); GLOMERULAR FILTRATION RATE > 60.0 (>45); GLUCOSE, FASTING 98 MG/DL (70-100); HDL CHOLESTEROL 49 MG/DL (>40); LDL CHOLESTEROL 52 MG/DL (<100); NON-HDL-C 70 MG/DL; POTASSIUM SERUM 3.7 MEQ/L (3.5-5.1); SODIUM LEVEL 140 MEQ/L (136-145); TRIGLYCERIDES LEVEL 88 MG/DL (<150)
== END ==
LOC: M SFHCLERA 09:13
PROVIDERS: ATTEND Family Medicine
DX: E78.2 Mixed hyperlipidemia (principal); I10 Essential (primary) hypertension; R73.01 Impaired fasting glucose

== ENCOUNTER → 2023-01-19 | Outpatient (REF) | payer OTHER, MEDICARE ==
[~2023-01-19] MED LIST changes: +CHLO1TAB35 PO; -CORITAB5 PO; +GABA-283 PO; -GABA-845 PO
[2023-01-19 12:23] LABS: BLOOD UREA NITROGEN 22 MG/DL (9-23); CALCIUM LEVEL 8.8 MG/DL (8.3-10.6); CARBON DIOXIDE LEVEL 29 MMOL/L (20-31); CHLORIDE LEVEL 105 MMOL/L (98-107); GLOMERULAR FILTRATION RATE > 60.0 (>45); GLUCOSE, FASTING 98 MG/DL (74-106); POTASSIUM SERUM 3.3 MMOL/L (3.5-5.1); SODIUM LEVEL 143 MMOL/L (136-145)
[2023-01-19 12:54] LABS: HEMOGLOBIN A1c 5.7 % (4.0-6.0)
== END ==
LOC: M SFHCLERA 08:44
PROVIDERS: ATTEND Family Medicine
DX: R73.03 Prediabetes (principal); I10 Essential (primary) hypertension

== ENCOUNTER → 2023-03-02 | Outpatient (CLI) | payer MEDICARE | LOC: M WHC 13:06 | PROVIDERS: ATTEND Family Medicine | DX: Z12.31 Encounter for screening mammogram for malignant neoplasm of breast (principal) ==

== ENCOUNTER → 2023-12-14 | Outpatient (REF) | payer BC, MEDICARE ==
[~2023-12-14] MED LIST changes: -ASPI-161 PO; +ASPI-615 PO; -GABA-283 PO; +GABA-284 PO
[2023-12-14 18:45] LABS: BLOOD UREA NITROGEN 28 MG/DL (9-23); CALCIUM LEVEL 9.8 MG/DL (8.3-10.6); CARBON DIOXIDE LEVEL 30 MMOL/L (20-31); CHLORIDE LEVEL 102 MMOL/L (98-107); CREATININE FOR GFR 0.81 MG/DL (0.55-1.30); GLOMERULAR FILTRATION RATE > 60.0 (>45); GLUCOSE, FASTING 89 MG/DL (74-106); SODIUM LEVEL 139 MMOL/L (136-145)
[2023-12-14 18:47] LABS: BASO % 0.6 % (0.0-1.0); EOS # 0.1 10^3/uL (0.0-0.5); EOS % 1.7 % (0.0-3.0); LYMPH # 2.1 10^3/uL (1.5-5.0); LYMPH % 31.8 % (24.0-44.0); MEAN CORPUSCULAR HEMOGLOBIN 31.5 pg (27.0-33.0); MEAN CORPUSCULAR HGB CONC 32.4 g/dl (32.0-36.5); MEAN CORPUSCULAR VOLUME 97.1 fl (80.0-96.0); MONO # 0.6 10^3/uL (0.0-0.8); MONO % 8.8 % (2.0-8.0); NEUTROPHILS # 3.7 10^3/uL (1.5-8.5); NEUTROPHILS % 56.8 % (36.0-66.0); PLATELET COUNT, AUTOMATED 324 10^3/uL (150-450); RED BLOOD COUNT 3.81 10^6/uL (4.00-5.40); WHITE BLOOD COUNT 6.6 10^3/uL (4.0-10.0)
== END ==
LOC: M SFHCLERA 09:32
PROVIDERS: ATTEND Family Medicine
DX: E87.6 Hypokalemia (principal); R20.2 Paresthesia of skin

== ENCOUNTER → 2024-06-06 | Outpatient (REF) | payer MEDICARE ==
[~2024-06-06] MED LIST changes: +GABA-1172 PO; +GABA-1490 PO; -GABA-282 PO; -GABA600T4 PO
[2024-06-06 12:02] LABS: ALBUMIN 3.9 G/DL (3.2-5.2); ALKALINE PHOSPHATASE 81 U/L (46-116); ALT/SGPT 21 U/L (7.0-40); AST/SGOT 20 U/L (<34); BILIRUBIN,TOTAL 1.8 MG/DL (0.3-1.2); BLOOD UREA NITROGEN 23 MG/DL (9-23); CALCIUM LEVEL 9.8 MG/DL (8.3-10.6); CARBON DIOXIDE LEVEL 30 MMOL/L (20-31); CHLORIDE LEVEL 106 MMOL/L (98-107); CHOLESTEROL LEVEL 140 MG/DL (<200); CHOLESTEROL RISK RATIO 3.22 (<5); GLOMERULAR FILTRATION RATE > 60.0 (>39); GLUCOSE, FASTING 95 MG/DL (74-106); HDL CHOLESTEROL 43.4 MG/DL (>40); LDL CHOLESTEROL 70.8 MG/DL (<100); NON-HDL-C 96.6 MG/DL; POTASSIUM SERUM 3.8 MMOL/L (3.5-5.1); SODIUM LEVEL 142 MMOL/L (136-145); TOTAL PROTEIN 7.1 G/DL (5.7-8.2); TRIGLYCERIDES LEVEL 129 MG/DL (<150)
[2024-06-06 12:15] LABS: HEMOGLOBIN A1c 5.9 % (4.0-6.0)
== END ==
LOC: M SFHCLERA 08:30
PROVIDERS: ATTEND Family Medicine
DX: E78.5 Hyperlipidemia, unspecified (principal); R73.03 Prediabetes

== ENCOUNTER → 2025-03-20 | Outpatient (REF) | payer MEDICARE ==
[~2025-03-20] MED LIST changes: +PRAV10TA PO; -PRAV10TA4 PO
[2025-03-20 12:30] LABS: ALT/SGPT 17.0 U/L (7.0-40); AST/SGOT 20.0 U/L (<34); BASO # 0.0 10^3/uL (0.0-0.2); BASO % 0.4 % (0.0-1.0); CALCIUM LEVEL 9.2 MG/DL (8.3-10.6); CARBON DIOXIDE LEVEL 29.0 MMOL/L (20-31); CHLORIDE LEVEL 101.0 MMOL/L (98-107); CHOLESTEROL LEVEL 114.0 MG/DL (<200); CHOLESTEROL RISK RATIO 2.82 (<5); CREATININE FOR GFR 0.84 MG/DL (0.55-1.30); EOS # 0.1 10^3/uL (0.0-0.5); EOS % 1.9 % (0.0-3.0); GLOMERULAR FILTRATION RATE 74.3 (>39); LDL CHOLESTEROL 48.6 MG/DL (<100); LYMPH # 1.4 10^3/uL (1.5-5.0); LYMPH % 30.6 % (24.0-44.0); MONO # 0.3 10^3/uL (0.0-0.8); MONO % 7.3 % (2.0-8.0); NEUTROPHILS # 2.8 10^3/uL (1.5-8.5); NEUTROPHILS % 59.6 % (36.0-66.0); NON-HDL-C 73.6 MG/DL; PLATELET COUNT, AUTOMATED 317 10^3/uL (150-450); POTASSIUM SERUM 3.4 MMOL/L (3.5-5.1); SODIUM LEVEL 144.0 MMOL/L (136-145); TRIGLYCERIDES LEVEL 125.0 MG/DL (<150)
[2025-03-20 13:16] LABS: ESTIMATED AVERAGE GLUCOSE 123.0 MG/DL (60-110)
== END ==
LOC: M SFHCCLAY 08:21
PROVIDERS: ATTEND Family Medicine
DX: Z00.00 Encounter for general adult medical examination without abnormal findings (principal); E78.2 Mixed hyperlipidemia